=== PATIENT | male | born 1950 | race Caucasian/White ===

== ENCOUNTER 2018-07-09 07:05 | Outpatient (CLI) | payer MEDICARE, SELFPAY ==
[2018-07-09 07:51] LABS: Hemoglobin A1C 7.9 % (4.5-6.2)
== END 2018-07-09 07:25 ==
PROVIDERS: PCP Internal Medicine; Visit Provider Internal Medicine
DX: E11.9 Type 2 diabetes mellitus without complications (principal)
CPT/HCPCS: 36415; 83036

== ENCOUNTER 2019-01-28 07:10 | Outpatient (CLI) | payer MEDICARE, SELFPAY | END 2019-01-28 07:30 | PROVIDERS: PCP Internal Medicine; Visit Provider Internal Medicine | DX: E11.9 Type 2 diabetes mellitus without complications (principal) | CPT/HCPCS: 36415; 83036 ==

== ENCOUNTER 2019-10-03 08:26 | Outpatient (CLI) | payer MEDICARE, SELFPAY | END 2019-10-03 08:46 | PROVIDERS: PCP Internal Medicine; Visit Provider Internal Medicine | DX: E11.9 Type 2 diabetes mellitus without complications (principal) | CPT/HCPCS: 36415; 83036 ==

== ENCOUNTER 2020-02-15 01:22 | Outpatient (CLI) | payer MEDICARE, SELFPAY ==
[2020-02-15 08:21] LABS: Hemoglobin A1C 9.9 % (3.8-5.6)
[2020-02-15 08:41] LABS: CREATININE 1.22 mg/dL (0.70-1.30); Calculated LDL 135 mg/dL (<100); Cholesterol 230 mg/dL (<200); Estimated GFR 58.56 (mL/min/1.73m2); HDL Cholesterol 37 mg/dL (40-60); Triglyceride 294 mg/dL (<150)
== END 2020-02-15 01:42 ==
PROVIDERS: PCP Nurse Practitioner; Visit Provider Nurse Practitioner
DX: E11.9 Type 2 diabetes mellitus without complications (principal); I10 Essential (primary) hypertension; Z13.6 Encounter for screening for cardiovascular disorders
CPT/HCPCS: 36415; 80061; 82565; 83036; 84132

== ENCOUNTER 2020-05-16 02:40 | Outpatient (CLI) | payer MEDICARE, SELFPAY ==
[2020-05-16 08:00] LABS: Hemoglobin A1C 9.1 % (<5.7)
[2020-05-16 08:29] LABS: Calculated LDL 153 mg/dL (<100); Cholesterol 246 mg/dL (<200); HDL Cholesterol 40 mg/dL (40-60); Triglyceride 265 mg/dL (<150)
== END 2020-05-16 03:00 ==
PROVIDERS: PCP Nurse Practitioner; Visit Provider Nurse Practitioner
DX: E11.9 Type 2 diabetes mellitus without complications (principal)
CPT/HCPCS: 36415; 80061; 83036

== ENCOUNTER 2022-02-21 01:13 | Outpatient (CLI) | payer MEDICARE, SELFPAY ==
[2022-02-21 12:49] LABS: CREATININE 1.3 mg/dL (0.70-1.30); Calculated LDL 86 mg/dL (<100); Cholesterol 175 mg/dL (<200); Estimated GFR 54.11 (mL/min/1.73m2); HDL Cholesterol 42 mg/dL (40-60); Potassium 4.2 mmol/L (3.5-5.1); Triglyceride 238 mg/dL (<150)
[2022-02-21 12:58] LABS: Hemoglobin A1C 12.2 % (<5.7)
== END 2022-02-21 01:14 | disposition home or self-care (01) ==
LOC: LOS 01:14
PROVIDERS: PCP Nurse Practitioner; Visit Provider Nurse Practitioner
DX: E11.9 Type 2 diabetes mellitus without complications (principal); E78.5 Hyperlipidemia, unspecified; I10 Essential (primary) hypertension
CPT/HCPCS: 36415; 80061; 82565; 83036; 84132

== ENCOUNTER 2023-03-03 02:12 | Outpatient (CLI) | payer MEDICARE, SELFPAY ==
[2023-03-03 12:52] LABS: HCT 46.1 % (40.0-50.0); HGB 15.4 g/dL (13.5-17.5); MCH 28.4 pg (27.0-33.0); MCHC 33.4 % (32.0-36.0); MCV 85 fL (80-95); MPV 10.2 fL (8.0-11.0); Platelet Count 213 10^3/uL (130-400); RBC 5.42 10^6/uL (4.36-5.78); RDW-SD 36.7 fL
[2023-03-03 14:55] LABS: Anion Gap 7.4 mmol/L (3-11); BUN 19 mg/dL (7-18); CO2 30.6 mmol/L (21.0-32.0); CREATININE 1.3 mg/dL (0.70-1.30); Calcium 9.7 mg/dL (8.5-10.1); Calculated LDL 76 mg/dL (<100); Chloride 101 mmol/L (98-107); Cholesterol 177 mg/dL (<200); Estimated GFR 57.65 (mL/min/1.73m2); Glucose 267 mg/dL (74-106); HDL Cholesterol 42 mg/dL (40-60); Potassium 5.2 mmol/L (3.5-5.1); Sodium 139 mmol/L (136-145); Triglyceride 295 mg/dL (<150)
== END 2023-03-03 02:13 | disposition home or self-care (01) ==
PROVIDERS: PCP Nurse Practitioner Family; Referring Provider Nurse Practitioner Family; Visit Provider Nurse Practitioner Family
DX: E11.9 Type 2 diabetes mellitus without complications (principal); E78.5 Hyperlipidemia, unspecified; I10 Essential (primary) hypertension; Z00.00 Encounter for general adult medical examination without abnormal findings
CPT/HCPCS: 36415; 80048; 80061; 85027

== ENCOUNTER 2024-05-16 14:25 | Emergency (ER) | payer MEDICARE, SELFPAY ==
[2024-05-16] VITALS (23 sets, daily range): BP systolic 105–145; BP diastolic 34–94; PULSE 76–95; RESP 9–21; TEMP 36.4; O2SAT 96–100
--- NOTE | 2024-05-16 14:40 | W.ED.GENAD ---
Discharge Plan Disposition Patient Disposition: Home Condition: Improving Discharge Details Chief Complaint: Abd Prob Clinical Impression: Bladder outflow obstruction, MICHELLE (acute kidney injury) Primary Care Provider: Venus Yanez ED Provider: Collin Jenkins Home Meds and New Rx's Prescriptions: No Action (DME) blood-glucose meter Misc See Rx Instructions .MEDSUPPLY Qty: 1 0RF Rx Instructions: As directed to check daily blood glucose. No insulin. Dispense covered brand. Dx: E11.9 to maintain HbA1c less than 7%. (DME) Blood Glucose Test Strip See Rx Instructions .MEDSUPPLY Qty: 100 3RF Rx Instructions: As directed to check daily blood glucose. No insulin. Dispense covered brand. Dx: E11.9 to maintain HbA1c less than 7%. (DME) lancets Misc See Rx Instructions .MEDSUPPLY Qty: 100 3RF Rx Instructions: As directed to check daily blood glucose. No insulin. Dispense covered brand. Dx: E11.9 to maintain HbA1c less than 7%. atorvastatin 20 mg tablet 20 mg PO QPM Qty: 90 3RF lisinopril 10 mg tablet 10 mg PO DAILY Qty: 90 3RF lisinopril-hydrochlorothiazide [Zestoretic] 20-12.5 mg tablet 1 tab PO QAM Qty: 90 3RF glipizide 5 mg tablet 5 mg PO BID Patient Comments: take 1 tablet by mouth twice a day Discharge Instructions Instructions: Acute kidney injury, Urinary Retention Additional Instructions: Please follow-up closely with urology and your primary care physician. Please return to the Emergency Department for any worsening symptoms HPI General Date/Time Provider Initiated Documentation: 05/16/24 14:26. HPI Narrative: 73-year-old male history of diabetes presents with 4 days of constipation and urinary retention. Associate with nausea no vomiting. Denies history of abdominal surgery. Related Data Home Medications ?Medication ?Instructions ?Recorded ?Confirmed blood sugar diagnostic (Blood #100 ea 03/27/23 02/23/24 Glucose Test strips) blood-glucose meter #1 ea 03/27/23 02/23/24 lancets #100 ea 03/27/23 02/23/24 atorvastatin 20 mg tablet 20 mg PO QPM #90 tabs 05/14/23 05/16/24 lisinopril 10 mg tablet 10 mg PO DAILY #90 tabs 10/09/23 05/16/24 lisinopril 20 1 tab PO QAM #90 tabs 10/19/23 02/23/24 mg-hydrochlorothiazide 12.5 mg tablet (Zestoretic) glipizide 5 mg tablet 5 mg PO BID 05/16/24 05/16/24 Previous Rx's ?Medication ?Instructions ?Recorded blood sugar diagnostic (Blood #100 ea 03/27/23 Glucose Test strips) blood-glucose meter #1 ea 03/27/23 lancets #100 ea 03/27/23 atorvastatin 20 mg tablet 20 mg PO QPM #90 tabs 05/14/23 lisinopril 10 mg tablet 10 mg PO DAILY #90 tabs 10/09/23 lisinopril 20 1 tab PO QAM #90 tabs 10/19/23 mg-hydrochlorothiazide 12.5 mg tablet (Zestoretic) Allergies Allergy/AdvReac Type Severity Reaction Status Date / Time metformin AdvReac Intermediate diarrhea Verified 05/16/24 15:25 General Stated Complaint: Abd Prob JULIANNE: 3 Exam Narrative Exam Narrative: Alert oriented resting comfortably Moist mucous membranes tongue secretions Full sentences no respiratory distress no tachypnea Abdomen soft nontender nondistended consider some suprapubic fullness nonperitoneal Moving all extremities without deficit No peripheral edema Ambulatory without ataxia Course Vital Signs Vital signs: Vital Signs Temperature 36.4 C 05/16/24 14:31 Pulse 95 H 05/16/24 14:31 Blood Pressure 133/82 05/16/24 14:31 Pulse Oximetry 96 05/16/24 14:31 Temperature 36.4 C 05/16/24 14:31 Temperature Source Oral 05/16/24 14:31 Pulse 95 H 05/16/24 14:31 Blood Pressure 133/82 05/16/24 14:31 Pulse Oximetry 96 05/16/24 14:31 Medical Decision Making 73-year-old male history of diabetes presents with 4 days of urinary retention and constipation, hemodynamically stable afebrile nontoxic neurologically intact no respiratory distress, abdomen soft nontender nondistended nonperitoneal however some slight fullness in suprapubic region, consider urinary retention related to BPH versus bowel obstruction versus ileus versus constipation versus malignancy muscles consider viral illness electrolyte derangement Bladder scan showing urinary retention [address] Deleon catheter will obtain labs and imaging 16: 29 severe MICHELLE likely related to urinary outflow obstruction, anion gap likely related to uremia. No evidence of air export coordinator small breathing tachycardia nausea vomiting or ketonuria to suggest DKA. Will recheck basic metabolic panel and venous blood gas after fluid resuscitation. If improving kidney function and labs will be able to discharge home with catheter to leg bag. 17: 40 labs improving after urinary outflow obstruction has been resolved. Patient will be given leg bag for Deleon, will be given urology follow-up. Quality:[facility] Health Related Social Needs: No Data to Display [facility] All Active Problems (Updated 05/16/24 @ 17:41 by Collin Jenkins MD) MICHELLE (acute kidney injury) (Acute) Bladder outflow obstruction (Acute) Right hip pain (Acute) Hyperlipidemia (Acute) Diabetes mellitus (Chronic) He wants to stick with the glipizide for now. Will be glad to change him when he is ready. The diarrhea is the issue. He did not want any treatment for his perianal irritation as it is minimal right now. His another A1c in a few months. Also send him to [facility] for an evaluation. He has an A1c scheduled for month and a half from now and hopefully he will remember to go. 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 LARA Essential hypertension (Acute 08/24/13) Tubular adenoma (Acute 11/23/15) Medical History (Updated 05/16/24 @ 17:41 by Collin Jenkins MD) Family history of diabetes mellitus (02/18/16) Mother/Sister Abnormal glucose Congenital hearing loss Essential hypertension Family History (Updated 02/22/21 @ 14:20 by Dawna Carter) Mother , 62 Diabetes Sister No problems noted. Social History (Updated 03/03/23 @ 15:38 by Brunilda Barnard) Smoking/Tobacco Use Status: Never Second Hand Exposure: No Smoking risk assessment performed?: Yes Alcohol Intake: current Alcohol Intake frequency: a few times a month Alcohol type: beer, wine and hard liquor Drug use: Never Substance use type: does not use Counseling given: No Counseling provided: none Caregiver/Support person: No Household members: none Housing: house Communication Needs: Hard of Hearing Do you need help understanding health information?: Rarely Pets and animals: No Sexually active: No Do you think of yourself as: straight/heterosexual Current gender identity: male What is your relationship status?: never How often do you talk on the phone with friends or family?: once per week How often do you get together with friends or relatives?: twice per week How often do you attend voodoo or nondenominational services?: decline to answer Do you belong to any clubs or organized social groups?: yes Panel score (0-1 are the most socially isolated patients): 2 What type of physical activity do you participate in: walking Duration: 30-45 minutes/day Frequency: 1-2 times per week Yahaira/Mormon: None Seatbelt use: always Helmet use: No Drive intox or ride w/intox experienced truck driver: No Do you feel safe at home: Yes Do you feel safe in your relationship?: Yes
[2024-05-16] MEDS: Normal Saline 500 ML 1000 ML IV (14:58)
[2024-05-16] MEDS: Ondansetron 4 MG/2 ML VIAL IVP (14:59)
[2024-05-16 15:07] LABS: Abs Immature Grans 0.08 10^3/uL (0.0-0.06); Absolute Basophil Count 0.01 10^3/uL (0.0-0.2); Absolute Eosinophil Count 0.02 10^3/uL (0.0-0.7); Absolute Lymphocyte Count 0.85 10^3/uL (1.2-3.4); Absolute Monocyte Count 1.27 10^3/uL (0.1-0.8); Absolute Neutrophil Count 9.41 10^3/uL (1.2-6.7); Basophils % 0.1 %; Eosinophils % 0.2 %; HCT 41.9 % (40.0-50.0); HGB 14.5 g/dL (13.5-17.5); Immature Grans % 0.7 %; Lymphocytes % 7.3 %; MCH 29.5 pg (27.0-33.0); MCHC 34.6 % (32.0-36.0); MCV 85 fL (80-95); MPV 9.8 fL (8.0-11.0); Monocytes % 10.9 %; Neutrophils % 80.8 %; Platelet Count 212 10^3/uL (130-400); RBC 4.91 10^6/uL (4.36-5.78); RDW 11.9 % (11.8-14.1); RDW-SD 36.6 fL; WBC 11.64 10^3/uL (4.4-10.8)
[2024-05-16] MEDS: Lidocaine 2% Jelly 6 ML SYR (15:16)
[2024-05-16 15:21] LABS: ALT 20 U/L (16-63); AST 17 U/L (15-37); Albumin 3.8 g/dL (3.4-5.0); Alkaline Phosphatase 80 U/L (46-116); Anion Gap 13.7 mmol/L (3-11); BUN 67 mg/dL (7-18); Bilirubin, Total 1.02 mg/dL (0.2-1.0); CO2 23.3 mmol/L (21.0-32.0); Calcium 9.2 mg/dL (8.5-10.1); Chloride 92 mmol/L (98-107); Glucose 238 mg/dL (74-106); Lipase 34 U/L (16-77); Potassium 4.9 mmol/L (3.5-5.1); Sodium 129 mmol/L (136-145); Total Protein 7.4 g/dL (6.4-8.2)
[2024-05-16 15:26] LABS: Bilirubin Negative (Negative); Blood Trace-intact (Negative); Clarity Clear (Clear); Glucose 250 mg/dL (Negative); Ketones Negative (Negative); Leukocyte Esterase Negative (Negative); Nitrite Negative (Negative); Urobilinogen 0.2 mg/dL (Up to 0.2); pH 5.5 (5-8)
[2024-05-16 15:34] LABS: Epithelial Cells Rare HPF (Negative); WBC Negative HPF (0-5)
[2024-05-16 15:35] LABS: Bacteria Rare HPF (Negative); C & S Indicated? No; Crystals Negative HPF (Negative); Mucus Negative (Negative)
--- NOTE | 2024-05-16 16:07 | DI.CT_ITS ---
Exam(s) CT ABDOMEN PELVIS WO EXAM: CT ABDOMEN PELVIS WO CLINICAL HISTORY: urinary retention constipation. TECHNIQUE: Imaging Protocol: Axial computed tomography images with coronal and sagittal reformatted images were created and reviewed. COMPARISON: No exams were available for comparison FINDINGS: ABDOMEN: Lung Bases: There is mild diffuse wall thickening of the distal esophagus. This may be due to underd istention but esophagitis cannot be excluded. Please correlate clinically. Liver: Normal density. No measurable mass. Gallbladder and biliary tract: Gallstones are present. There is no biliary ductal dilatation. Pancreas: Normal density, no abnormal calcifications or inflammatory process. Spleen: Normal. Kidneys: Normal size, contour and axis.No evidence of nephrolithiasis. There is mild dilatation of t he ureters bilaterally which may be secondary to chronic bladder outlet obstruction and an enlarged p rostate gland. No masses seen. Adrenal glands: No mass is seen. Lymph nodes: Within normal limits. Abdominal Aorta: Abdominal portion non-dilated. Atherosclerotic calcification is present. PELVIS: Bladder:There is a catheter in place. There is a small amount of air seen in the urinary bladder lik isidoro reflecting instrumentation. There is mild wall thickening of the urinary bladder. This may be d ue to underdistention, chronic bladder outlet obstruction or cystitis. Please correlate clinically. High density material is seen in the dependent portion of the urinary bladder which may represent mu ltiple bladder stones. Bowel: There is diverticulosis of the colon without evidence of acute diverticulitis. There is no ev idence of bowel wall thickening or obstruction. No evidence of appendicitis. There is a small amoun t of stool throughout the colon. Peritoneal cavity: No ascites, collection or mesenteric inflammatory response. No free air. Reproductive organs: The prostate gland is markedly enlarged. Bones: Age-appropriate degenerative changes are seen in the spine. Soft Tissues: Small bilateral fat containing inguinal hernias are present. IMPRESSION: 1. No evidence of nephrolithiasis. 2. Markedly enlarged prostate gland. 3. High density material seen layering in the urinary bladder which may represent multiple bladder st ones. There is a Deleon catheter in the urinary bladder. There is a small amount of air seen in the urinary bladder likely reflecting instrumentation. 4. There is mild thickening of the wall of the urinary bladder. This may be due to chronic bladder o utlet obstruction, underdistention or cystitis. Please correlate clinically. 5. Colonic diverticulosis without evidence of acute diverticulitis. 6. Cholelithiasis. No biliary ductal dilatation. 7. Mild diffuse thickening of the wall of the distal esophagus. This may be due to underdistention o r esophagitis. Please correlate clinically. RADIATION DOSE DELIVERED: 416.08mGy.cm Total DLP DATA REPOSITORY: All CT scans at this facility are submitted to the National Radiology Data Registry (NRDR) Dose Index Registry (DIR) with the [employer] (ACR). RADIATION OPTIMIZATION: All CT scans at this facility use at least one of these dose optimization te chniques: automated exposure control; mA and/or kV adjustment per patient size (includes targeted exa ms where dose is matched to clinical indication); or iterative reconstruction.
[2024-05-16 16:10] LABS: COVID-19 PCR Negative (Negative); Influenza A PCR Negative (Negative); Influenza B PCR Negative (Negative); RSV PCR Negative (Negative)
[2024-05-16 16:11] LABS: Source Nasopharynx
[2024-05-16 16:13] LABS: BE (Venous) -5 mmol/L (-2-3); HCO3 (Venous) 21 mmol/L (23-28); O2 Sat (Venous) 45 %; TCO2 (Venous) 20 mmol/L (24-29); pCO2 (Venous) 43 mmHg (41-51); pO2 (Venous) 27 mmHg
[2024-05-16] MEDS: Lactated Ringers 1,000 ML 1000 ML IV (16:38)
[2024-05-16 17:20] LABS: BE (Venous) -3 mmol/L (-2-3); HCO3 (Venous) 23 mmol/L (23-28); O2 Sat (Venous) 42 %; TCO2 (Venous) 21 mmol/L (24-29); pCO2 (Venous) 40 mmHg (41-51); pH (Venous) 7.36 (7.31-7.41); pO2 (Venous) 25 mmHg
[2024-05-16 17:35] LABS: Anion Gap 9.4 mmol/L (3-11); BUN 61 mg/dL (7-18); CO2 23.6 mmol/L (21.0-32.0); Calcium 8.6 mg/dL (8.5-10.1); Chloride 100 mmol/L (98-107); Estimated GFR 10.37 (mL/min/1.73m2); Glucose 203 mg/dL (74-106); Sodium 133 mmol/L (136-145)
[2024-05-16 17:36] LABS: CREATININE 5.4 mg/dL (0.70-1.30)
== END 2024-05-16 18:38 | disposition home or self-care (01) ==
PROVIDERS: Emergency Provider Emergency Medicine; PCP Nurse Practitioner Family
DX: N32.0 Bladder-neck obstruction (principal); R33.8 Other retention of urine; N17.9 Acute kidney failure, unspecified; E11.9 Type 2 diabetes mellitus without complications
CPT/HCPCS: 51702; 51798; 80048; 80053; 82805; 83690; 87637; 96361; 96374; 74176; 81003; 81015; 85025; 99283; J2405

== ENCOUNTER 2024-05-18 10:27 | Emergency (ER) | payer MEDICARE, SELFPAY ==
[2024-05-18 10:31] VITALS: BP 166/74; PULSE 76; RESP 12; TEMP 36.4; O2SAT 95
--- NOTE | 2024-05-18 10:45 | ED.GENADUL_ITS ---
Discharge Plan Disposition Patient Disposition: Home Condition: Stable Discharge Details Clinical Impression: Bladder outflow obstruction Primary Care Provider: Venus Yanez ED Provider: Miguel Hutton Home Meds and New Rx's Prescriptions: Continued (DME) blood-glucose meter Misc See Rx Instructions .MEDSUPPLY Qty: 1 0RF Rx Instructions: As directed to check daily blood glucose. No insulin. Dispense covered brand. Dx: E11.9 to maintain HbA1c less than 7%. (DME) Blood Glucose Test Strip See Rx Instructions .MEDSUPPLY Qty: 100 3RF Rx Instructions: As directed to check daily blood glucose. No insulin. Dispense covered brand. Dx: E11.9 to maintain HbA1c less than 7%. (DME) lancets Misc See Rx Instructions .MEDSUPPLY Qty: 100 3RF Rx Instructions: As directed to check daily blood glucose. No insulin. Dispense covered brand. Dx: E11.9 to maintain HbA1c less than 7%. atorvastatin 20 mg tablet 20 mg PO QPM Qty: 90 3RF lisinopril 10 mg tablet 10 mg PO DAILY Qty: 90 3RF glipizide 5 mg tablet 5 mg PO BID Patient Comments: take 1 tablet by mouth twice a day No Action lisinopril-hydrochlorothiazide [Zestoretic] 20-12.5 mg tablet 1 tab PO QAM Qty: 90 3RF Discharge Instructions Additional Instructions: Your kidney function significantly improved on lab work today Follow-up with urology, you can call their office to arrange for follow-up If you feel more ill, have severe pain or new symptoms such as high fevers return to the emergency department for reevaluation Referrals: Rahul Sewell MD [ [facility] STAFF PHYSICIAN] - [facility] General Mode of arrival: ambulatory . Date/Time Provider Initiated Documentation: 05/18/24 10:34 . Limitations to Documentation: no limitations . Information obtained by: patient . History of Present Illness 73 year old M p resents to the emergency department with the chief complaint of blood around penis, described as mild, Quality is described as aching, and is localized to the genitals. Patient reports no radiation. Patient started experiencing this day(s) (2) and it has been intermittent. No relieving factors improve symptom(s), No exacerbating factors reported . Patient notes no other symptoms.; denies chest pain, fever/chills and shortness of breath. Patient did receive the following treatments prior to arrival, none Related Data Home Medications ?Medication ?Instructions ?Recorded ?Confirmed blood sugar diagnostic (Blood #100 ea 03/27/23 05/18/24 Glucose Test strips) blood-glucose meter #1 ea 03/27/23 05/18/24 lancets #100 ea 03/27/23 05/18/24 atorvastatin 20 mg tablet 20 mg PO QPM #90 tabs 05/14/23 05/18/24 lisinopril 10 mg tablet 10 mg PO DAILY #90 tabs 10/09/23 05/18/24 lisinopril 20 1 tab PO QAM #90 tabs 10/19/23 05/16/24 mg-hydrochlorothiazide 12.5 mg tablet (Zestoretic) glipizide 5 mg tablet 5 mg PO BID 05/16/24 05/18/24 Previous Rx's ?Medication ?Instructions ?Recorded blood sugar diagnostic (Blood #100 ea 03/27/23 Glucose Test strips) blood-glucose meter #1 ea 03/27/23 lancets #100 ea 03/27/23 atorvastatin 20 mg tablet 20 mg PO QPM #90 tabs 05/14/23 lisinopril 10 mg tablet 10 mg PO DAILY #90 tabs 10/09/23 lisinopril 20 1 tab PO QAM #90 tabs 10/19/23 mg-hydrochlorothiazide 12.5 mg tablet (Zestoretic) Allergies Allergy/AdvReac Type Severity Reaction Status Date / Time metformin AdvReac Intermediate diarrhea Verified 05/18/24 10:36 General Stated Complaint: Urinary JULIANNE: 3 Review of Systems All systems reviewed & are unremarkable except as noted in HPI and below Constitutional Constitutional: Denies chills, Denies fever(s) and Denies weakness Cardiovascular Cardiovascular: Denies chest pain and Denies dyspnea Respiratory Respiratory: Denies cough and Denies dyspnea Gastrointestinal Gastrointestinal: Denies abdominal pain, Denies nausea and Denies vomiting Neurologic Neurologic: Denies weakness Exam Const General: no acute distress Orientation: alert [facility] Head: normal to inspection Ears: external ears normal General nose exam: external nose normal Mouth: moist mucous membranes Eyes General: appearance normal, both eyes and all related structures Neck Neck: normal visual inspection Resp Effort & Inspection: normal respiratory effort and able to speak in complete sentences Cardio Rate: regular rate GI Palpation: soft and nontender Penis: not erythematous and no masses Skin General skin exam: no rashes or lesions noted Neuro General: patient alert and patient oriented x3 Extrem General: normal to inspection Psych Mental Status: mental status grossly normal Course Vital Signs Vital signs: Vital Signs Temperature 36.4 C 05/18/24 10:31 Pulse 76 05/18/24 10:31 Respiratory Rate 12 05/18/24 10:31 Blood Pressure 166/74 H 05/18/24 10:31 Pulse Oximetry 95 05/18/24 10:31 Temperature 36.4 C 05/18/24 10:31 Pulse 76 05/18/24 10:31 Respiratory Rate 12 05/18/24 10:31 Respiratory Effort Normal 05/18/24 10:37 Blood Pressure 166/74 H 05/18/24 10:31 Pulse Oximetry 95 05/18/24 10:31 Oxygen Delivery Method Room Air 05/18/24 10:31 Oxygen Flow Rate 0 05/18/24 10:31 Pain Level 8 05/18/24 10:31 Comment Pt had advil around 1015 to help with the pain around the head of his penis 05/18/24 10:31 Medical Decision Making 73-year-old male who was seen 2 days ago for urinary retention and MICHELLE secondary to this and had a Frazier placed comes in stating that he is having intermittent bleeding from the tip of his penis. He denies any severe pain. He has no abdominal pain otherwise feels well. He has clear appearing urine in his Frazier. He does have some dried blood at the tip of his penis. There is no tenderness or pain. I suspect he is having some bleeding from the Frazier insertion, it is not oozing or coming out currently does not feel it is a injury that requires any further intervention at this time. Discussed with him that the Frazier should remain in place and he may continue to have some intermittent bleeding but as long as it stops is not of concern. I will check a BMP given his MICHELLE on his prior visit. Creatinine values significantly improved since last visit and he feels significantly better after lidocaine place. No bleeding currently. He is stable for discharge and will follow-up with urology, return precautions given Differential Diagnosis Differential Diagnosis: traumatic insertion frazier, michelle Quality:SDOH Health Related Social Needs: No Data to Display PFSH All Active Problems (Updated 05/18/24 @ 11:45 by Miguel Hutton MD) MICHELLE (acute kidney injury) (Acute) Bladder outflow obstruction (Acute) Right hip pain (Acute) Hyperlipidemia (Acute) Diabetes mellitus (Chronic) He wants to stick with the glipizide for now. Will be glad to change him when he is ready. The diarrhea is the issue. He did not want any treatment for his perianal irritation as it is minimal right now. His another A1c in a few months. Also send him to [facility] for an evaluation. He has an A1c scheduled for month and a half from now and hopefully he will remember to go. 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 LARA Essential hypertension (Acute 08/24/13) Tubular adenoma (Acute 11/23/15) Medical History Family history of diabetes mellitus (02/18/16) Mother/Sister Abnormal glucose Congenital hearing loss Essential hypertension Family History Mother , 62 Diabetes Sister No problems noted. Social History Smoking/Tobacco Use Status: Never Second Hand Exposure: No Smoking risk assessment performed?: Yes Alcohol Intake: current Alcohol Intake frequency: holidays/special occasions only Alcohol type: beer, wine and hard liquor Drug use: Never Substance use type: does not use Counseling given: No Counseling provided: none Caregiver/Support person: No Household members: none Housing: house Communication Needs: Hard of Hearing Do you need help understanding health information?: Rarely Pets and animals: No Sexually active: No Do you think of yourself as: straight/heterosexual Current gender identity: male What is your relationship status?: never How often do you talk on the phone with friends or family?: once per week How often do you get together with friends or relatives?: twice per week How often do you attend restorationism or religion services?: decline to answer Do you belong to any clubs or organized social groups?: yes Panel score (0-1 are the most socially isolated patients): 2 What type of physical activity do you participate in: walking Duration: 30-45 minutes/day Frequency: 1-2 times per week Yahaira/Baptism: None Seatbelt use: always Helmet use: No Drive intox or ride w/intox escort car driver: No Do you feel safe at home: Yes Do you feel safe in your relationship?: Yes
[2024-05-18] MEDS: Lidocaine 2% Jelly 6 ML SYR (11:24)
[2024-05-18 11:25] VITALS: BP 146/57; PULSE 67; RESP 16; O2SAT 97
[2024-05-18 11:30] LABS: BUN 29 mg/dL (7-18); CO2 27.4 mmol/L (21.0-32.0); CREATININE 1.5 mg/dL (0.70-1.30); Calcium 9.1 mg/dL (8.5-10.1); Chloride 107 mmol/L (98-107); Estimated GFR 48.25 (mL/min/1.73m2); Glucose 220 mg/dL (74-106)
[2024-05-18 11:37] LABS: Anion Gap 7.6 mmol/L (3-11); Sodium 142 mmol/L (136-145)
[2024-05-18 11:38] LABS: Potassium 3.9 mmol/L (3.5-5.1)
== END 2024-05-18 12:21 | disposition home or self-care (01) ==
PROVIDERS: Emergency Provider Emergency Medicine; PCP Nurse Practitioner Family
DX: N32.0 Bladder-neck obstruction (principal); T83.9XXA Unspecified complication of genitourinary prosthetic device, implant and graft, initial encounter
CPT/HCPCS: 80048; 99282; 99283

== ENCOUNTER 2024-05-19 09:46 | Emergency (ER) | payer MEDICARE, SELFPAY ==
[2024-05-19 09:56] VITALS: BP 154/81; PULSE 73; RESP 10; TEMP 36.4; O2SAT 96
--- NOTE | 2024-05-19 10:40 | ED.GENADUL_ITS ---
Discharge Plan Disposition Patient Disposition: Home Condition: Stable Discharge Details Clinical Impression: Frazier catheter problem Primary Care Provider: Venus Yanez ED Provider: Awais Mckay Home Meds and New Rx's Prescriptions: Continued (DME) blood-glucose meter Misc See Rx Instructions .MEDSUPPLY Qty: 1 0RF Rx Instructions: As directed to check daily blood glucose. No insulin. Dispense covered brand. Dx: E11.9 to maintain HbA1c less than 7%. (DME) Blood Glucose Test Strip See Rx Instructions .MEDSUPPLY Qty: 100 3RF Rx Instructions: As directed to check daily blood glucose. No insulin. Dispense covered brand. Dx: E11.9 to maintain HbA1c less than 7%. (DME) lancets Misc See Rx Instructions .MEDSUPPLY Qty: 100 3RF Rx Instructions: As directed to check daily blood glucose. No insulin. Dispense covered brand. Dx: E11.9 to maintain HbA1c less than 7%. atorvastatin 20 mg tablet 20 mg PO QPM Qty: 90 3RF lisinopril 10 mg tablet 10 mg PO DAILY Qty: 90 3RF lidocaine HCl 2 % jelly in applicator 1 applic topical BID-QID PRN (Reason: pain) Qty: 250 2RF Rx Instructions: apply to urethral meatus as needed glipizide 5 mg tablet 5 mg PO BID Patient Comments: take 1 tablet by mouth twice a day No Action lisinopril-hydrochlorothiazide [Zestoretic] 20-12.5 mg tablet 1 tab PO QAM Qty: 90 3RF Discharge Instructions Instructions: How to Care for Your Frazier Catheter Additional Instructions: You were seen in the emergency department for your continued minor bleeding from your Frazier catheter site, is very unlikely that this bleeding is dangerous and you are seen by urology here in the emergency department, they will follow-up with you and have sent 2 prescriptions. If sent you home with a lidocaine jelly to use for the pain around the Frazier catheter site, please follow-up with urology outpatient, please return to the emergency department for severe increase in bleeding or pain especially with fever, any abdominal pain with blocked Frazier catheter Referrals: [facility] [Provider Group] Venus Yanez NP [Primary Care Provider] - Discharge Data Discharge Date/Time-TO BE ENTERED AT DEPARTURE: 05/19/24 12:47 HPI General Date/Time Provider Initiated Documentation: 05/19/24 09:49 . HPI Narrative: 73 year-old male presents to ED today by POV/ambulating, 4th visit this week with a chief complaint of blood draining around a frazier catheter intermittently, being followed by Urology for this problem with onset since Thursday. Quality described as not overly painful, does have some clood and clots drain from around the frazier tubing daily, no active bleeding, frazier bag appears with normal urine, no radiation to fever, flank pain, abdominal pain, chest pain, shortness of breath, nausea/vomiting. Severity is described as moderate. Palliating factors include nothing specific. Provoking factors include nothing specific. Events leading up to the incident/Associated Symptoms: Patient will be consulted on by Urology here in ED as they have not been able to fit him into schedule yet. Patient not anticoagulated. Related Data Home Medications ?Medication ?Instructions ?Recorded ?Confirmed blood sugar diagnostic (Blood #100 ea 03/27/23 05/19/24 Glucose Test strips) blood-glucose meter #1 ea 03/27/23 05/19/24 lancets #100 ea 03/27/23 05/19/24 atorvastatin 20 mg tablet 20 mg PO QPM #90 tabs 05/14/23 05/19/24 lisinopril 10 mg tablet 10 mg PO DAILY #90 tabs 10/09/23 05/19/24 lisinopril 20 1 tab PO QAM #90 tabs 10/19/23 05/19/24 mg-hydrochlorothiazide 12.5 mg tablet (Zestoretic) glipizide 5 mg tablet 5 mg PO BID 05/16/24 05/19/24 lidocaine HCl 2 % mucosal jelly in 1 applic topical BID-QID PRN pain 05/19/24 applicator #250 mL Previous Rx's ?Medication ?Instructions ?Recorded blood sugar diagnostic (Blood #100 ea 03/27/23 Glucose Test strips) blood-glucose meter #1 ea 03/27/23 lancets #100 ea 03/27/23 atorvastatin 20 mg tablet 20 mg PO QPM #90 tabs 05/14/23 lisinopril 10 mg tablet 10 mg PO DAILY #90 tabs 10/09/23 lisinopril 20 1 tab PO QAM #90 tabs 10/19/23 mg-hydrochlorothiazide 12.5 mg tablet (Zestoretic) lidocaine HCl 2 % mucosal jelly in 1 applic topical BID-QID PRN pain 05/19/24 applicator #250 mL Allergies Allergy/AdvReac Type Severity Reaction Status Date / Time metformin AdvReac Intermediate diarrhea Verified 05/19/24 09:59 General Stated Complaint: Urinary JULIANNE: 3 Review of Systems All systems reviewed & are unremarkable except as noted in HPI and below Exam Narrative Exam Narrative: GENERAL APPEARANCE: Well-nourished, non-toxic, awake and alert, atraumatic, no acute distress. SKIN: Warm, pink, dry, intact, without rashes/lesions/ulcerations. HEAD: Normocephalic, atraumatic, normal hair distribution for gender/age. EYES: Normal conjunctiva, no exudates on lids/lashes. ENT: Nares patent, no circumoral cyanosis, no facial swelling NECK: Supple, trachea midline, painless cervical ROM. LUNGS/CHEST: Non-labored respirations, normal A/P diameter, symmetrical expansion, no chest wall deformity HEART (CV/PV): No peripheral edema, no JVD. ABDOMEN: Soft, non-distended, no guarding, no abdominal tenderness, no CVA tenderness to percussion bilaterally, mild bleeding from urethral meatus into depends- no active bleeding. MSK: Normal ROM, no swelling/deformity to bilateral UEs or LEs, moving all extremities without weakness, no cyanosis, spine midline without tenderness, normal curvature. NEURO: Mental Status AAOx4 - alert to person, place, time, events No facial droop, no forehead involvement. Motor: No focal weakness - strength 5/5 in bilateral UEs and LEs, proximal and distal, symmetric. Sensory: sensation intact to light touch globally. Gait normal: patient ambulated without ataxia into ED room. PSYCH: euthymic, cooperative, pleasant, appropriate speech Course Vital Signs Vital signs: Vital Signs Temperature 36.4 C L 05/19/24 09:56 Pulse 73 05/19/24 09:56 Respiratory Rate 10 L 05/19/24 09:56 Blood Pressure 154/81 H 05/19/24 09:56 Pulse Oximetry 96 05/19/24 09:56 Temperature 36.4 C L 05/19/24 09:56 Temperature Source Oral 05/19/24 09:56 Pulse 73 05/19/24 09:56 Respiratory Rate 10 L 05/19/24 09:56 Respiratory Effort Normal 05/19/24 10:00 Blood Pressure 154/81 H 05/19/24 09:56 Pulse Oximetry 96 05/19/24 09:56 Pain Level 8 05/19/24 09:56 Medical Decision Making This dictation utilizes [id number] dictation software and may contain unedited grammatical errors. 73 year-old male presents to ED today by POV/ambulating, 4th visit this week with a chief complaint of blood draining around a frazier catheter intermittently, being followed by Urology for this problem with onset since Thursday. Quality described as not overly painful, does have some clood and clots drain from around the frazier tubing daily, no active bleeding, frazier bag appears with normal urine, no radiation to fever, flank pain, abdominal pain, chest pain, shortness of breath, nausea/vomiting. Severity is described as moderate. Palliating factors include nothing specific. Provoking factors include nothing specific. Events leading up to the incident/Associated Symptoms: Patient will be consulted on by Urology here in ED as they have not been able to fit him into schedule yet. Patients' medical history: t2DM, HTN, Bladder outflow obstruction, MICHELLE, SALAMATOF. Family and social history: noncontributory. Pertinent exam findings / vital signs include dried blood in depends, no active bleeding from urethral meatus, urine in frazier bag- draining, nonperitoneal abdomen, vitals nontoxic. Differential / pathologies of concern include continued bladder outflow obstruction, UTI, frazier catheter problem. Diagnostic studies of: -Reviewed labs from yesterdays visit- showed vastly improved SCr Interventions of: -Consult Urology- patient seen in ED by Dr. Sewell please see his note. ED Course/Assessment/Plan: Patient presents to the ED for the fourth time this week for Frazier catheter problem, he has known bladder outflow obstruction and had severe renal failure on the which is resolving per yesterday's visit, he is concerned that he has blood leaking around the tubing from his urethra, likely from physical trauma of placing the Frazier. He was seen by Dr. Sewell and will be definitively managed from urology outpatient clinic, and strict return criteria for any worsening bleeding, signs of infection, severe flank pain, weakness, nausea, fevers. Findings not consistent with hemorrhage, sepsis, renal failure. Disposition of Frazier Catheter Problem. Patient verbalized understanding of the plan and return to ED criteria and engaged in shared decision making. Medical Records Medical records reviewed: Yes I reviewed the patient's medical records. Quality:[facility] Health Related Social Needs: No Data to Display [facility] All Active Problems (Updated 05/19/24 @ 12:35 by LILI Garcia) Frazier catheter problem (Acute) MICHELLE (acute kidney injury) (Acute) Bladder outflow obstruction (Acute) Right hip pain (Acute) Hyperlipidemia (Acute) Diabetes mellitus (Chronic) He wants to stick with the glipizide for now. Will be glad to change him when he is ready. The diarrhea is the issue. He did not want any treatment for his perianal irritation as it is minimal right now. His another A1c in a few months. Also send him to [facility] for an evaluation. He has an A1c scheduled for month and a half from now and hopefully he will remember to go. 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 LARA Essential hypertension (Acute 08/24/13) Tubular adenoma (Acute 11/23/15) Medical History Family history of diabetes mellitus (02/18/16) Mother/Sister Abnormal glucose Congenital hearing loss Essential hypertension Family History Mother , 62 Diabetes Sister No problems noted. Social History Smoking/Tobacco Use Status: Never Second Hand Exposure: No Smoking risk assessment performed?: Yes Alcohol Intake: current Alcohol Intake frequency: holidays/special occasions only Alcohol type: beer, wine and hard liquor Drug use: Never Substance use type: does not use Counseling given: No Counseling provided: none Caregiver/Support person: No Household members: none Housing: house Communication Needs: Hard of Hearing Do you need help understanding health information?: Rarely Pets and animals: No Sexually active: No Do you think of yourself as: straight/heterosexual Current gender identity: male What is your relationship status?: never How often do you talk on the phone with friends or family?: once per week How often do you get together with friends or relatives?: twice per week How often do you attend alevism or jehovah's witness services?: decline to answer Do you belong to any clubs or organized social groups?: yes Panel score (0-1 are the most socially isolated patients): 2 What type of physical activity do you participate in: walking Duration: 30-45 minutes/day Frequency: 1-2 times per week Yahaira/Lutheran: None Seatbelt use: always Helmet use: No 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
[2024-05-19 11:22] VITALS: BP 154/81; PULSE 73; RESP 10; TEMP 36.4; O2SAT 96
[2024-05-19 11:53] VITALS: BP 151/69; PULSE 66; RESP 18; TEMP 35.9; O2SAT 100
[2024-05-19] MEDS: Lidocaine 2% Jelly 11 ML SYR UR (12:40)
--- NOTE | 2024-05-19 14:36 | W.UROLOGYCON ---
Date of service: 05/19/24 Time of Service: 14:36 Assessment and Plan Assessment and plan (1) Bladder outflow obstruction: Status: Acute Assessment and plan: His urine is actually clear and his catheter continues to flow. I reassured the patient there is nothing emergent that needs to be done. He does need the Deleon catheter as he had obstructive uropathy when he initially presented. When we are able to see him in the office in a nonemergent state, we can discuss our treatment options at that time. The blood around the urethral meatus is not uncommon. We are more worried if there is blood in the catheter itself and the patient's form clots causing catheter obstruction. There is no indication at this point that this gentleman has catheter occlusion. He simply needs to be treated symptomatically. Have recommended that we give him some topical lidocaine jelly while he is here in the emergency department and I have sent a prescription in for him to his preferred pharmacy. My office will be in touch with him in the next day or 2 to set up a nonemergent appointment. History of Present Illness History of Present Illness Chief Complaint: Obstructive uropathy Narrative: This is a 73-year-old gentleman who recently presented to the emergency department unable to urinate. His serum creatinine was 7.5. He had a Deleon catheter placed and over time, his serum creatinine has returned to baseline for him. He was discharged with a urethral catheter in place. The catheter was hooked to a leg bag. He has had multiple emergency room and urgent care visits for concerns regarding pain at the urethral meatus and some bleeding from the meatus as well. He was seen in urgent care this morning and directed to come to the emergency department. The emergency providers asked me to see this gentleman while he was here. He is wondering if he still needs his Deleon catheter. He tells me that when he was in the emergency department recently, they treated the urethral meatus with some cream and he was wondering if he might be able to get some again. He is also asking if the drainage tubing for his leg bag can be trimmed [facility] All Active Problems (Updated 05/19/24 @ 12:35 by LILI Garcia) Deleon catheter problem (Acute) MICHELLE (acute kidney injury) (Acute) Bladder outflow obstruction (Acute) Right hip pain (Acute) Hyperlipidemia (Acute) Diabetes mellitus (Chronic) He wants to stick with the glipizide for now. Will be glad to change him when he is ready. The diarrhea is the issue. He did not want any treatment for his perianal irritation as it is minimal right now. His another A1c in a few months. Also send him to [facility] for an evaluation. He has an A1c scheduled for month and a half from now and hopefully he will remember to go. 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 LARA Essential hypertension (Acute 08/24/13) Tubular adenoma (Acute 11/23/15) Medical History Family history of diabetes mellitus (02/18/16) Mother/Sister Abnormal glucose Congenital hearing loss Essential hypertension Family History Mother , 62 Diabetes Sister No problems noted. Social History Smoking/Tobacco Use Status: Never Second Hand Exposure: No Smoking risk assessment performed?: Yes Alcohol Intake: current Alcohol Intake frequency: holidays/special occasions only Alcohol type: beer, wine and hard liquor Drug use: Never Substance use type: does not use Counseling given: No Counseling provided: none Caregiver/Support person: No Household members: none Housing: house Communication Needs: Hard of Hearing Do you need help understanding health information?: Rarely Pets and animals: No Sexually active: No Do you think of yourself as: straight/heterosexual Current gender identity: male What is your relationship status?: never How often do you talk on the phone with friends or family?: once per week How often do you get together with friends or relatives?: twice per week How often do you attend protestant or congregational services?: decline to answer Do you belong to any clubs or organized social groups?: yes Panel score (0-1 are the most socially isolated patients): 2 What type of physical activity do you participate in: walking Duration: 30-45 minutes/day Frequency: 1-2 times per week Yahaira/Episcopalian: None Seatbelt use: always Helmet use: No 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 There is some old dried blood on his depends. I do not see any open skin on the scrotum, penis or glans There is a large amount of redundant tubing on his drainage leg bag Results Last Vital Signs Temp 35.9 C L 05/19/24 11:53 Pulse 66 05/19/24 11:53 Resp 18 05/19/24 11:53 BP 151/69 H 05/19/24 11:53 Pulse Ox 100 05/19/24 11:53
== END 2024-05-19 12:47 | disposition home or self-care (01) ==
PROVIDERS: Emergency Provider Physician Assistant; PCP Nurse Practitioner Family
DX: T83.84XA Pain due to genitourinary prosthetic devices, implants and grafts, initial encounter; N32.0 Bladder-neck obstruction; I10 Essential (primary) hypertension; E78.5 Hyperlipidemia, unspecified; E11.9 Type 2 diabetes mellitus without complications; Z79.84 Long term (current) use of oral hypoglycemic drugs; Z79.899 Other long term (current) drug therapy
CPT/HCPCS: 99283; 99284

== ENCOUNTER 2024-05-26 17:35 | Emergency (ER) | payer MEDICARE, SELFPAY ==
[2024-05-26 17:40] VITALS: BP 120/81; PULSE 99; RESP 20; TEMP 36.6; O2SAT 96
[2024-05-26 18:08] VITALS: BP 120/81; PULSE 99; RESP 20; TEMP 36.6; O2SAT 96
[2024-05-26 18:37] VITALS: PULSE 66
[2024-05-26] MEDS: Lidocaine 2% Jelly 6 ML SYR (19:37)
--- NOTE | 2024-05-26 19:57 | W.ED.GENAD ---
Discharge Plan Disposition Patient Disposition: Home Condition: Stable Discharge Details Clinical Impression: Deleon catheter problem, Bladder outflow obstruction, Cellulitis Primary Care Provider: Venus Yanez ED Provider: Madonna Avila Home Meds and New Rx's Prescriptions: New cephalexin 500 mg capsule 500 mg PO Q6H 6 Days Qty: 24 0RF Continued glipizide 10 mg tablet 10 mg PO BID Qty: 180 3RF nystatin 100,000 unit/gram ointment 1 applic topical BID Qty: 30 0RF Rx Instructions: Apply to the tip of the penis twice daily for 2-3 weeks. (DME) blood-glucose meter Misc See Rx Instructions .MEDSUPPLY Qty: 1 0RF Rx Instructions: As directed to check daily blood glucose. No insulin. Dispense covered brand. Dx: E11.9 to maintain HbA1c less than 7%. (DME) Blood Glucose Test Strip See Rx Instructions .MEDSUPPLY Qty: 100 3RF Rx Instructions: As directed to check daily blood glucose. No insulin. Dispense covered brand. Dx: E11.9 to maintain HbA1c less than 7%. (DME) lancets Misc See Rx Instructions .MEDSUPPLY Qty: 100 3RF Rx Instructions: As directed to check daily blood glucose. No insulin. Dispense covered brand. Dx: E11.9 to maintain HbA1c less than 7%. atorvastatin 20 mg tablet 20 mg PO QPM Qty: 90 3RF lisinopril 10 mg tablet 10 mg PO DAILY Qty: 90 3RF lidocaine HCl 2 % jelly in applicator 1 applic topical BID-QID PRN (Reason: pain) Qty: 250 2RF Rx Instructions: apply to urethral meatus as needed lisinopril-hydrochlorothiazide 20-12.5 mg tablet 1 tab PO DAILY Patient Comments: take 1 tablet by mouth every morning glipizide 5 mg tablet 5 mg PO BID Patient Comments: take 1 tablet by mouth twice a day No Action lisinopril-hydrochlorothiazide [Zestoretic] 20-12.5 mg tablet 1 tab PO QAM Qty: 90 3RF Discharge Instructions Instructions: Cellulitis (Skin Infection), Adult ED Additional Instructions: Take antibiotic as prescribed Yogurt daily while on the antibiotic Follow-up with Dr. Sewell tomorrow return with spreading redness, fever, worsening symptoms Continue to apply topical yeast medication and return earlier should you have new or worsening complaints Referrals: Rahul Sewell MD [ [facility] STAFF PHYSICIAN] - Venus Yanez NP [Primary Care Provider] - HPI General Date/Time Provider Initiated Documentation: 05/26/24 18:14. HPI Narrative: This 73-year-old male presents with report of Deleon catheter malfunction. Patient denies any fever or chills. He states that he was walking and his leg bag accidentally disconnected and was sent here for replacement. He also states he recently started on an antifungal for a yeast infection in his groin. Related Data Home Medications ?Medication ?Instructions ?Recorded ?Confirmed blood sugar diagnostic (Blood #100 ea 03/27/23 05/26/24 Glucose Test strips) blood-glucose meter #1 ea 03/27/23 05/26/24 lancets #100 ea 03/27/23 05/26/24 atorvastatin 20 mg tablet 20 mg PO QPM #90 tabs 05/14/23 05/26/24 lisinopril 10 mg tablet 10 mg PO DAILY #90 tabs 10/09/23 05/26/24 lisinopril 20 1 tab PO QAM #90 tabs 10/19/23 05/26/24 mg-hydrochlorothiazide 12.5 mg tablet (Zestoretic) lidocaine HCl 2 % mucosal jelly in 1 applic topical BID-QID PRN pain 05/19/24 05/26/24 applicator #250 mL cephalexin 500 mg capsule 500 mg PO Q6H 6 days #24 caps 05/26/24 glipizide 10 mg tablet 10 mg PO BID #180 tabs 05/26/24 05/26/24 glipizide 5 mg tablet 5 mg PO BID 05/26/24 05/26/24 lisinopril 20 1 tab PO DAILY 05/26/24 05/26/24 mg-hydrochlorothiazide 12.5 mg tablet nystatin 100,000 unit/gram topical 1 applic topical BID #30 grams 05/26/24 05/26/24 ointment Previous Rx's ?Medication ?Instructions ?Recorded blood sugar diagnostic (Blood #100 ea 03/27/23 Glucose Test strips) blood-glucose meter #1 ea 03/27/23 lancets #100 ea 03/27/23 atorvastatin 20 mg tablet 20 mg PO QPM #90 tabs 05/14/23 lisinopril 10 mg tablet 10 mg PO DAILY #90 tabs 10/09/23 lisinopril 20 1 tab PO QAM #90 tabs 10/19/23 mg-hydrochlorothiazide 12.5 mg tablet (Zestoretic) lidocaine HCl 2 % mucosal jelly in 1 applic topical BID-QID PRN pain 05/19/24 applicator #250 mL cephalexin 500 mg capsule 500 mg PO Q6H 6 days #24 caps 05/26/24 glipizide 10 mg tablet 10 mg PO BID #180 tabs 05/26/24 nystatin 100,000 unit/gram topical 1 applic topical BID #30 grams 05/26/24 ointment Allergies Allergy/AdvReac Type Severity Reaction Status Date / Time metformin AdvReac Intermediate diarrhea Verified 05/26/24 17:44 General Stated Complaint: Urinary JULIANNE: 4 Exam Narrative Exam Narrative: Alert and oriented 73-year-old male, has indwelling Deleon catheter with erythema on the glans that is painful, no abdominal tenderness, no drainage from the urethra Course Vital Signs Vital signs: Vital Signs Temperature 36.6 C 05/26/24 17:40 Pulse 99 H 05/26/24 17:40 Respiratory Rate 20 05/26/24 17:40 Blood Pressure 120/81 05/26/24 17:40 Pulse Oximetry 96 05/26/24 17:40 Temperature 36.6 C 05/26/24 18:08 Temperature Source Tympanic 05/26/24 18:08 Pulse 66 05/26/24 18:37 Respiratory Rate 20 05/26/24 18:08 Respiratory Effort Normal, Non-Labored 05/26/24 18:07 Blood Pressure 120/81 05/26/24 18:08 Pulse Oximetry 96 05/26/24 18:08 Oxygen Delivery Method Room Air 05/26/24 18:08 Oxygen Flow Rate 0 05/26/24 18:08 Pain Level 0 05/26/24 18:08 Medical Decision Making 73-year-old male with indwelling Deleon catheter secondary to bladder outlet obstruction, Deleon catheter was removed by nursing staff and there is erythema to the entire glans, this is tender, concern for possible cellulitis, once Deleon catheter was removed, there was some ulceration along the urethral meatus, as patient was unable to urinate successfully, Deleon catheter was reintroduced and patient tolerated procedure without incident. He is placed on urology follow-up for tomorrow. Patient is otherwise afebrile and nontoxic, he is ambulatory with steady gait. Quality:SDOH Health Related Social Needs: No Data to Display [facility] All Active Problems (Updated 05/26/24 @ 19:58 by LILI Yun) Cellulitis (Acute) [place] infection (Acute) Deleon catheter problem (Acute) MICHELLE (acute kidney injury) (Acute) Bladder outflow obstruction (Acute) Right hip pain (Acute) Hyperlipidemia (Acute) Diabetes mellitus (Chronic) He wants to stick with the glipizide for now. Will be glad to change him when he is ready. The diarrhea is the issue. He did not want any treatment for his perianal irritation as it is minimal right now. His another A1c in a few months. Also send him to [facility] for an evaluation. He has an A1c scheduled for month and a half from now and hopefully he will remember to go. 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 LARA Essential hypertension (Chronic 08/24/13) Tubular adenoma (Acute 11/23/15) Medical History Family history of diabetes mellitus (02/18/16) Mother/Sister Abnormal glucose Congenital hearing loss Essential hypertension Family History Mother , 62 Diabetes Sister No problems noted. Social History (Updated 05/26/24 @ 16:10 by Briseida Tong) Smoking/Tobacco Use Status: Never Second Hand Exposure: No Smoking risk assessment performed?: Yes Alcohol Intake: current Alcohol Intake frequency: holidays/special occasions only Alcohol type: beer, wine and hard liquor Drug use: Never Substance use type: does not use Counseling given: No Counseling provided: none Caregiver/Support person: No Household members: none Housing: house Communication Needs: Hard of Hearing Do you need help understanding health information?: Rarely Pets and animals: No Sexually active: No Do you think of yourself as: straight/heterosexual Current gender identity: male What is your relationship status?: never How often do you talk on the phone with friends or family?: once per week How often do you get together with friends or relatives?: twice per week How often do you attend mandaeism or yazidi services?: decline to answer Do you belong to any clubs or organized social groups?: yes Panel score (0-1 are the most socially isolated patients): 2 What type of physical activity do you participate in: walking Duration: 30-45 minutes/day Frequency: 1-2 times per week Yahaira/Hindu: None Seatbelt use: always Helmet use: No Drive intox or ride w/intox driver guard: No Do you feel safe at home: Yes Do you feel safe in your relationship?: Yes
[2024-05-26] MEDS: Cephalexin 500 MG CAP, 4 CAPS/BTL PO (20:15)
[2024-05-26 20:47] VITALS: BP 143/69; PULSE 82; RESP 16; O2SAT 97
[2024-05-26] MEDS: Normal Saline-STERILE FIELD 0.9% 10 ML SYR (20:47)
== END 2024-05-26 20:49 | disposition home or self-care (01) ==
PROVIDERS: Emergency Provider Physician Assistant; PCP Nurse Practitioner Family
DX: T83.028A Displacement of other urinary catheter, initial encounter (principal); N48.22 Cellulitis of corpus cavernosum and penis; I10 Essential (primary) hypertension; E11.9 Type 2 diabetes mellitus without complications; Z79.84 Long term (current) use of oral hypoglycemic drugs
CPT/HCPCS: 99283

== ENCOUNTER 2024-05-27 09:55 | Emergency (ER) | payer MEDICARE, SELFPAY ==
--- NOTE | 2024-05-27 09:58 | W.ED.GENAD ---
Discharge Plan Disposition Patient Disposition: Home Discharge Details Clinical Impression: Deleon catheter problem Primary Care Provider: Venus Yanez ED Provider: Neri Pruitt Home Meds and New Rx's Prescriptions: Continued glipizide 10 mg tablet 10 mg PO BID Qty: 180 3RF nystatin 100,000 unit/gram ointment 1 applic topical BID Qty: 30 0RF Rx Instructions: Apply to the tip of the penis twice daily for 2-3 weeks. (DME) blood-glucose meter Misc See Rx Instructions .MEDSUPPLY Qty: 1 0RF Rx Instructions: As directed to check daily blood glucose. No insulin. Dispense covered brand. Dx: E11.9 to maintain HbA1c less than 7%. (DME) Blood Glucose Test Strip See Rx Instructions .MEDSUPPLY Qty: 100 3RF Rx Instructions: As directed to check daily blood glucose. No insulin. Dispense covered brand. Dx: E11.9 to maintain HbA1c less than 7%. (DME) lancets Misc See Rx Instructions .MEDSUPPLY Qty: 100 3RF Rx Instructions: As directed to check daily blood glucose. No insulin. Dispense covered brand. Dx: E11.9 to maintain HbA1c less than 7%. atorvastatin 20 mg tablet 20 mg PO QPM Qty: 90 3RF lisinopril 10 mg tablet 10 mg PO DAILY Qty: 90 3RF lidocaine HCl 2 % jelly in applicator 1 applic topical BID-QID PRN (Reason: pain) Qty: 250 2RF Rx Instructions: apply to urethral meatus as needed lisinopril-hydrochlorothiazide 20-12.5 mg tablet 1 tab PO DAILY Patient Comments: take 1 tablet by mouth every morning glipizide 5 mg tablet 5 mg PO BID Patient Comments: take 1 tablet by mouth twice a day cephalexin 500 mg capsule 500 mg PO Q6H 6 Days Qty: 24 0RF No Action lisinopril-hydrochlorothiazide [Zestoretic] 20-12.5 mg tablet 1 tab PO QAM Qty: 90 3RF Discharge Instructions Additional Instructions: You were seen in the emergency department for your catheter problem. Your catheter appears to be working well. Please do not tug on your catheter. Please continue taking your antibiotics as previously prescribed. Please follow-up with your urologist next week. Please return to the emergency department if you develop fevers chills nausea or vomiting. Discharge Data Discharge Date/Time-TO BE ENTERED AT DEPARTURE: 05/27/24 11:07 HPI General Date/Time Provider Initiated Documentation: 05/27/24 09:58. HPI Narrative: MDM This is an overall very well-appearing normothermic and not tachycardic 73-year-old male with indwelling Deleon catheter and history of manipulating his Deleon catheter but reassuring bladder scan and no signs of sepsis for which patient was discharged with empiric trial of expectant outpatient management. I considered sepsis however the patient's vitals are reassuring and has not had any fevers I did not send blood cultures she empirically with IV antibiotics nor check a lactate. No pain out of proportion to suggest necrotizing soft tissue infection. No recent falls to suggest increased risk for intra-abdominal hemorrhage. Patient has been adherent with his antibiotics and has had no fevers so not suspicious for acute urinary tract infection. Patient is not anticoagulated and denies hematuria so I am not suspicious for clot hematuria. No signs of Oswald's gangrene. Patient is circumcised and so I am not suspicious for paraphimosis. Patient reported emptying his leg bag this morning having approximately 100 cc. Patient has been tolerating p.o. so do not feel he requires assessment of labs as he does not appear dehydrated so I am not suspicious for any acute kidney injuries. No flank pain to suggest ureterolithiasis. Urinalysis was nitrate negative not consistent with UTI. Patient did have large blood and greater than 50 RBCs per high-powered field. Given that he was not retaining I did not feel that he required hand irrigation nor CBI. I suspect his hematuria is secondary to inadvertently inflicted urethral trauma secondary to manipulation of his catheter. No syncope nor hypotension to suggest ruptured AAA. Patient and I discussed that he should avoid manipulating his catheter. We discussed that he should also follow-up with urology next week and his primary care provider. We discussed that he should return to the ED if he develops abdominal pain nausea vomiting or if he has no urine output in 8 hours. He understood his return indications and is discharged with empiric trial of expectant outpatient management. HPI This 73-year-old male arrived to the emergency department via private vehicle in the setting of urine leaking around his catheter. Patient notes that this began this morning. He does note that he has been tugging at his catheter. He denies flank pain fevers abdominal pain nausea vomiting chest pain shortness of breath. He has been adherent with his home cephalexin. He does not take an anticoagulant. He has not noticed any blood in his Deleon catheter bag. Exam General: Well-appearing in no acute distress speaking in complete sentences. Head: Normocephalic, atraumatic. Eye: Extraocular eye movements intact. No conjunctival injection. No scleral icterus. Ear, nose, mouth, throat: Grossly normal inspection. Normal voice, handling secretions normally. Neck: Trachea midline. Cardiovascular: Well-perfused distal extremities. Respiratory: Nonlabored respiration. Gastrointestinal: Nondistended abdomen. Soft nontender : Circumcised penis. No hematuria. No signs of Oswald's gangrene. Leg bag in place draining clear/yellow urine. No gross hematuria. Musculoskeletal: No edema. Moving all 4 extremities spontaneously. Skin: Normal for age and race, grossly normal temperature and turgor. No acute rash. Neurologic: Alert and appropriate, no apparent acute deficits. Psychiatric: Mood and manner are appropriate. Grooming and personal hygiene are appropriate. Related Data Home Medications ?Medication ?Instructions ?Recorded ?Confirmed blood sugar diagnostic (Blood #100 ea 03/27/23 05/26/24 Glucose Test strips) blood-glucose meter #1 ea 03/27/23 05/26/24 lancets #100 ea 03/27/23 05/26/24 atorvastatin 20 mg tablet 20 mg PO QPM #90 tabs 05/14/23 05/26/24 lisinopril 10 mg tablet 10 mg PO DAILY #90 tabs 10/09/23 05/26/24 lisinopril 20 1 tab PO QAM #90 tabs 10/19/23 05/26/24 mg-hydrochlorothiazide 12.5 mg tablet (Zestoretic) lidocaine HCl 2 % mucosal jelly in 1 applic topical BID-QID PRN pain 05/19/24 05/26/24 applicator #250 mL cephalexin 500 mg capsule 500 mg PO Q6H 6 days #24 caps 05/26/24 05/27/24 glipizide 10 mg tablet 10 mg PO BID #180 tabs 05/26/24 05/26/24 glipizide 5 mg tablet 5 mg PO BID 05/26/24 05/27/24 lisinopril 20 1 tab PO DAILY 05/26/24 05/27/24 mg-hydrochlorothiazide 12.5 mg tablet nystatin 100,000 unit/gram topical 1 applic topical BID #30 grams 05/26/24 05/26/24 ointment Previous Rx's ?Medication ?Instructions ?Recorded blood sugar diagnostic (Blood #100 ea 03/27/23 Glucose Test strips) blood-glucose meter #1 ea 03/27/23 lancets #100 ea 03/27/23 atorvastatin 20 mg tablet 20 mg PO QPM #90 tabs 05/14/23 lisinopril 10 mg tablet 10 mg PO DAILY #90 tabs 10/09/23 lisinopril 20 1 tab PO QAM #90 tabs 10/19/23 mg-hydrochlorothiazide 12.5 mg tablet (Zestoretic) lidocaine HCl 2 % mucosal jelly in 1 applic topical BID-QID PRN pain 05/19/24 applicator #250 mL cephalexin 500 mg capsule 500 mg PO Q6H 6 days #24 caps 05/26/24 glipizide 10 mg tablet 10 mg PO BID #180 tabs 05/26/24 nystatin 100,000 unit/gram topical 1 applic topical BID #30 grams 05/26/24 ointment Allergies Allergy/AdvReac Type Severity Reaction Status Date / Time metformin AdvReac Intermediate diarrhea Verified 05/27/24 10:04 General JULIANNE: 4 Medical Decision Making Quality:SDOH Health Related Social Needs: No Data to Display PFSH All Active Problems (Updated 05/27/24 @ 10:56 by Neri Pruitt MD) Cellulitis (Acute) [place] infection (Acute) Deleon catheter problem (Acute) MICHELLE (acute kidney injury) (Acute) Bladder outflow obstruction (Acute) Right hip pain (Acute) Hyperlipidemia (Acute) Diabetes mellitus (Chronic) He wants to stick with the glipizide for now. Will be glad to change him when he is ready. The diarrhea is the issue. He did not want any treatment for his perianal irritation as it is minimal right now. His another A1c in a few months. Also send him to [facility] eye care for an evaluation. He has an A1c scheduled for month and a half from now and hopefully he will remember to go. 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 LARA Essential hypertension (Chronic 08/24/13) Tubular adenoma (Acute 11/23/15) Medical History Family history of diabetes mellitus (02/18/16) Mother/Sister Abnormal glucose Congenital hearing loss Essential hypertension Family History Mother , 62 Diabetes Sister No problems noted. Social History (Updated 05/26/24 @ 16:10 by Briseida Tong) Smoking/Tobacco Use Status: Never Second Hand Exposure: No Smoking risk assessment performed?: Yes Alcohol Intake: current Alcohol Intake frequency: holidays/special occasions only Alcohol type: beer, wine and hard liquor Drug use: Never Substance use type: does not use Counseling given: No Counseling provided: none Caregiver/Support person: No Household members: none Housing: house Communication Needs: Hard of Hearing Do you need help understanding health information?: Rarely Pets and animals: No Sexually active: No Do you think of yourself as: straight/heterosexual Current gender identity: male What is your relationship status?: never How often do you talk on the phone with friends or family?: once per week How often do you get together with friends or relatives?: twice per week How often do you attend scientology or zoroastrianism services?: decline to answer Do you belong to any clubs or organized social groups?: yes Panel score (0-1 are the most socially isolated patients): 2 What type of physical activity do you participate in: walking Duration: 30-45 minutes/day Frequency: 1-2 times per week Yahaira/Zoroastrian: None Seatbelt use: always Helmet use: No Drive intox or ride w/intox stacker driver: No Do you feel safe at home: Yes Do you feel safe in your relationship?: Yes
[2024-05-27 10:03] VITALS: BP 123/77; PULSE 95; RESP 18; TEMP 36.8; O2SAT 98
[2024-05-27 10:42] LABS: Bilirubin Negative (Negative); Blood Large (Negative); Clarity Sl Cloudy (Clear); Glucose Negative (Negative); Ketones 15 mg/dL (Negative); Leukocyte Esterase Small (Negative); Nitrite Negative (Negative); Specific Gravity 1.025 (1.005-1.025); pH 6.5 (5-8)
[2024-05-27 11:03] VITALS: BP 120/75; PULSE 80; O2SAT 98
[2024-05-27 11:15] LABS: Epithelial Cells Rare HPF (Negative); RBC >50 HPF (0-2)
[2024-05-27 11:16] LABS: Bacteria Few HPF (Negative); C & S Indicated? No; Casts Negative LPF (Negative); Crystals Negative HPF (Negative); Mucus Negative (Negative)
--- NOTE | 2024-05-30 07:28 | NUR.NOTE ---
Access chart to reconcile EKG orders with EKG's in [facility]. Order deleted, no EKG in [facility]. Nursing Note:
== END 2024-05-27 11:07 | disposition home or self-care (01) ==
PROVIDERS: Emergency Provider Emergency Medicine; PCP Nurse Practitioner Family
DX: T83.038A Leakage of other urinary catheter, initial encounter (principal); I10 Essential (primary) hypertension; E11.9 Type 2 diabetes mellitus without complications; Z79.84 Long term (current) use of oral hypoglycemic drugs
CPT/HCPCS: 99283; 81003; 81015

== ENCOUNTER 2024-06-06 15:29 | Outpatient (REF) | payer MEDICARE, SELFPAY ==
[2024-06-06 21:18] LABS: Abs Immature Grans 0.03 10^3/uL (0.0-0.06); Absolute Basophil Count 0.04 10^3/uL (0.0-0.2); Absolute Eosinophil Count 0.11 10^3/uL (0.0-0.7); Absolute Lymphocyte Count 1.83 10^3/uL (1.2-3.4); Absolute Monocyte Count 0.77 10^3/uL (0.1-0.8); Basophils % 0.5 %; Eosinophils % 1.3 %; HCT 39.4 % (40.0-50.0); HGB 13.9 g/dL (13.5-17.5); Immature Grans % 0.3 %; Lymphocytes % 21.1 %; MCH 28.8 pg (27.0-33.0); MCHC 35.3 % (32.0-36.0); MCV 82 fL (80-95); MPV 10.4 fL (8.0-11.0); Monocytes % 8.9 %; Neutrophils % 67.9 %; Platelet Count 462 10^3/uL (130-400); RBC 4.83 10^6/uL (4.36-5.78); RDW 11.7 % (11.8-14.1); RDW-SD 34.1 fL; WBC 8.68 10^3/uL (4.4-10.8)
[2024-06-06 21:42] LABS: ALT 25 U/L (16-63); AST 17 U/L (15-37); Albumin 3.7 g/dL (3.4-5.0); Alkaline Phosphatase 85 U/L (46-116); Anion Gap 12.5 mmol/L (3-11); BUN 27 mg/dL (7-18); Bilirubin, Total 0.52 mg/dL (0.2-1.0); CO2 23.5 mmol/L (21.0-32.0); CREATININE 1.4 mg/dL (0.70-1.30); Calcium 9.6 mg/dL (8.5-10.1); Chloride 101 mmol/L (98-107); Estimated GFR 52.41 (mL/min/1.73m2); Glucose 159 mg/dL (74-106); Potassium 4.3 mmol/L (3.5-5.1); Sodium 137 mmol/L (136-145)
[2024-06-07 18:51] LABS: PSA, Screening 6.5 ng/mL (<=6.5)
== END 2024-06-06 15:30 | disposition home or self-care (01) ==
LOC: LBN 15:29
PROVIDERS: PCP Nurse Practitioner Family; Visit Provider Nurse Practitioner Family
DX: N32.0 Bladder-neck obstruction (principal); N17.9 Acute kidney failure, unspecified; I10 Essential (primary) hypertension; E11.9 Type 2 diabetes mellitus without complications; Z12.5 Encounter for screening for malignant neoplasm of prostate
CPT/HCPCS: 80053; 84153; 85025

== ENCOUNTER → 2024-06-16 09:59 | Outpatient (BNVA) | payer MEDICARE, SELFPAY | PROVIDERS: PCP Nurse Practitioner Family; Referring Provider Nurse Practitioner Family; Visit Provider Urology ==

== ENCOUNTER 2024-06-16 13:08 | Outpatient (CLI) | payer MEDICARE, SELFPAY ==
[2024-06-16 14:27] LABS: TSH (W/Ref FT4) 2.14 uIU/mL (0.36-3.74); Vitamin D 25 Total 12.5 ng/mL (30-100)
== END 2024-06-16 13:09 | disposition home or self-care (01) ==
LOC: LBO 13:08
PROVIDERS: PCP Nurse Practitioner Family; Visit Provider Nurse Practitioner Family
DX: R53.83 Other fatigue (principal); E55.9 Vitamin D deficiency, unspecified
CPT/HCPCS: 36415; 51702; 82306; 99215; 84443

== ENCOUNTER 2024-07-04 07:11 | Observation (INO) | payer MEDICARE, SELFPAY ==
[2024-07-04] VITALS (51 sets, daily range): BP systolic 54–147; BP diastolic 23–89; PULSE 69–101; RESP 9–20; TEMP 35.8–36.6; O2SAT 90–100; BMI 23.2
[2024-07-04] MEDS: Lactated Ringers 1,000 ML 80 ML IV (07:49)
--- NOTE | 2024-07-04 08:08 | W.ANESPRE ---
General Info Date of Service Date Performed: 07/04/24 Height: 5 ft 9 in Weight: 71.3 kg Body Mass Index (BMI): 23.2 Surgical Procedure: Operation Date: 07/04/24 08:55 Proposed Procedure Side Surgeon p Simple Retropubic Prostatectomy Rahul Sewell MD Meds Allergies and Home Medications Allergies Allergy/AdvReac Type Severity Reaction Status Date / Time metformin AdvReac Intermediate diarrhea Verified 07/01/24 12:06 Home Medication ?Medication ?Instructions ?Recorded blood sugar diagnostic (Blood #100 ea 03/27/23 Glucose Test strips) blood-glucose meter #1 ea 03/27/23 lancets #100 ea 03/27/23 lidocaine HCl 2 % mucosal jelly in 1 applic topical BID-QID PRN pain 05/19/24 applicator #250 mL nystatin 100,000 unit/gram topical 1 applic topical BID #30 grams 05/26/24 ointment atorvastatin 20 mg tablet 20 mg PO QPM #90 tabs 06/06/24 lisinopril 20 1 tab PO DAILY #90 tabs 06/06/24 mg-hydrochlorothiazide 12.5 mg tablet glipizide 5 mg tablet 5 mg PO BID #180 tabs 06/13/24 omeprazole 20 mg capsule,delayed 20 mg PO DAILY #90 caps 06/13/24 release Current Visit Medications: Current Medications Generic Name Dose Route Start Last Admin Trade Name Freq PRN Reason Stop Dose Admin Ringer's Solution 1,000 mls @ 80 mls/hr 07/04/24 06:00 07/04/24 07:49 IV 07/04/24 23:59 80 mls/hr INFUSION JUNE Administration Cefazolin Sodium/Dextrose 2 gm in 50 mls @ 100 mls/hr 07/04/24 06:00 Ancef Duplex IVPB 07/04/24 23:59 PREOP JUNE IV Miscellaneous Supplies 1 each 07/04/24 06:00 Iv Access IV 07/04/24 23:59 DIRECTED JUNE Sodium Chloride 0 ml 07/04/24 06:00 Normal Saline Flush 10 Ml Syr IV 07/04/24 23:59 PRN PRN Sodium Chloride 0 ml 07/04/24 06:00 Normal Saline 10 Ml Vial IJ 07/04/24 23:59 DIRECTED PRN Sterile Water 0 ml 07/04/24 06:00 Water,Injection,Sterile 10 Ml Vial IJ 07/04/24 23:59 DIRECTED PRN PFS Active Problems Active Problems: Problem Status Onset Code Obstructive uropathy Acute N13.9 Fatigue Acute R53.83 [place] infection Acute B37.9 Right hip pain Acute M25.551 Hyperlipidemia Acute E78.5 Diabetes mellitus Chronic E11.9 Congenital hearing disorder Acute 08/24/13 H90.5 Diverticulosis Acute K57.90 Essential hypertension Chronic 08/24/13 I10 Tubular adenoma Acute 11/23/15 D36.9 Medical History Medical History Family history of diabetes mellitus (02/18/16) Mother/Sister Abnormal glucose Congenital hearing loss Essential hypertension Tobacco Smoking/Tobacco Use Status: Never Passive smoking exposure: No Second hand exposure: No Alcohol Alcohol Intake: current Alcohol intake frequency: holidays/special occasions only Alcohol type: beer, wine and hard liquor Substance Use Substance use: Never Substance use type: does not use Counseling provided: none Vital Signs and Lab Results Vital Signs Most Recent Vital Signs in EMR: Most Recent Vital Signs Temp Pulse Resp BP Pulse Ox 36.6 C 87 18 135/71 99 07/04/24 07:24 07/04/24 07:24 07/04/24 07:24 07/04/24 07:24 07/04/24 07:24 Point of Care Results Point of Care Results: Finger Stick Blood Glucose 146 07/04/24 07:26 Lab Results Blood Type / Crossmatch: No Data to Display Complete Blood Count: White Blood Count 8.68 10^3/uL (4.4-10.8) 06/06/24 14:50 Red Blood Count 4.83 10^6/uL (4.36-5.78) 06/06/24 14:50 Hemoglobin 13.9 g/dL (13.5-17.5) 06/06/24 14:50 Hematocrit 39.4 % (40.0-50.0) L 06/06/24 14:50 Platelet Count 462 10^3/uL (130-400) H 06/06/24 14:50 Complete Metabolic Panel: Sodium 137 mmol/L (136-145) 06/06/24 14:50 Potassium 4.3 mmol/L (3.5-5.1) 06/06/24 14:50 Chloride 101 mmol/L (98-107) 06/06/24 14:50 Carbon Dioxide 23.5 mmol/L (21.0-32.0) 06/06/24 14:50 BUN 27 mg/dL (7-18) H 06/06/24 14:50 Creatinine 1.4 mg/dL (0.70-1.30) H 06/06/24 14:50 Est GFR (CKD-EPI 2020) 52.41 (mL/min/1.73m2) 06/06/24 14:50 Calcium 9.6 mg/dL (8.5-10.1) 06/06/24 14:50 Albumin 3.7 g/dL (3.4-5.0) 06/06/24 14:50 Glucose 159 mg/dL (74-106) H 06/06/24 14:50 Liver Function Panel: Alanine Aminotransferase (ALT/SGPT) 25 U/L (16-63) 06/06/24 14:50 Aspartate Amino Transf (AST/SGOT) 17 U/L (15-37) 06/06/24 14:50 Coagulation Panel: No Data to Display Cardiac Panel: No Data to Display Arterial Blood Gas: No Data to Display Venous Blood Gas: No Data to Display Pancreas Panel: No Data to Display Thyroid Panel: Thyroid Stimulating Hormone (TSH) 2.14 uIU/mL (0.36-3.74) 06/16/24 12:49 Infectious Disease: No Data to Display Blood Cultures: No Data to Display Toxicology Panel: No Data to Display Anesthesia Assessment and Plan Anesthesia History Personal History: No History of Anesthesia Complications Family History: No Family History of Anesthesia Complications Exercise Tolerance Exercise Tolerance: Metabolic Equivalents>4 Cardiac & Pulmonary Exam Cardiac Exam: Normal S1/S2 Heart Sounds Pulmonary Exam: Clear Bilateral Breath Sounds Implantable Cardiac Device Does patient have a Pacemaker or an ICD?: No Airway Exam Known Difficult Airway: No Mallampati Class: 3 Mouth Opening: Narrow (< 3cm) Thyromental Distance: Less than 3 cm Neck Range of Motion: Limited ROM Neck Circumference: Normal Teeth Condition: Normal Dentition ASA Classification ASA Score: ASA 2 Emergency Case?: No NPO Status NPO Status: NPO Clears >2 hours, Solids >8 hours Anesthesia Plan Resuscitation Status: Full Code Anesthesia Technique: General Anesthesia Airway Planned: Endotracheal Tube Monitors Used: Standard Monitors Preoperative Comments:: 73 yo male for retropubic prostatectomy. Sig PMHx: HTN (lisinopril, HCTZ. Checks his BP at [place], states he is well controlled), DM (glipizide), GERD (omeprazole, related with food), never smoker, occ EtOH. Discussed likely 2nd IV. Appropriately NPO, but is not hungry.
--- NOTE | 2024-07-04 08:15 | W.PM.HP.N ---
Date of service: 07/04/24 Time of Service: 08:36 Assessment and Plan Assessment and plan (1) Obstructive uropathy: Status: Acute Assessment and plan: Given the size of his prostate, we have arranged for simple retropubic prostatectomy. He will stay in the hospital for continuous bladder irrigation after the procedure History of Present Illness History of Present Illness Chief Complaint: Obstructive uropathy Narrative: This is a 73-year-old gentleman who presented to the emergency department with an elevated creatinine of 7.5 and urinary retention. He was treated with placement of a urethral catheter. He is renal function returned to baseline with catheter drainage. Prior to the ER visit, he was having urinary frequency and overflow incontinence. He has no history of urinary tract infections or kidney stones. He has been imaged with CT scans and it is estimated that his prostate is over 100 cc in volume. Who presents for simple retropubic prostatectomy for his bladder outlet obstruction. Review of Systems Narrative: No fevers or chills Decreased hearing acuity. No vision change or dysphasia Diabetes. No thyroid dysfunction No shortness of breath, cough or hemoptysis No chest pain or palpitations GERD. No hepatitis, ulcers, jaundice No seizures, strokes or peripheral neuropathy No bleeding disorders or anemia Arthralgia. No gout PFSH All Active Problems Obstructive uropathy (Acute) Fatigue (Acute) [place] infection (Acute) Right hip pain (Acute) Hyperlipidemia (Acute) Diabetes mellitus (Chronic) He wants to stick with the glipizide for now. Will be glad to change him when he is ready. The diarrhea is the issue. He did not want any treatment for his perianal irritation as it is minimal right now. His another A1c in a few months. Also send him to [facility] for an evaluation. He has an A1c scheduled for month and a half from now and hopefully he will remember to go. 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 LARA Essential hypertension (Chronic 08/24/13) Tubular adenoma (Acute 11/23/15) Medical History Family history of diabetes mellitus (02/18/16) Mother/Sister Abnormal glucose Congenital hearing loss Essential hypertension Family History Mother , 62 Diabetes Sister No problems noted. Social History (Updated 05/26/24 @ 16:10 by Briseida Tong) Smoking/Tobacco Use Status: Never Second Hand Exposure: No Smoking risk assessment performed?: Yes Alcohol Intake: current Alcohol Intake frequency: holidays/special occasions only Alcohol type: beer, wine and hard liquor Drug use: Never Substance use type: does not use Counseling given: No Counseling provided: none Caregiver/Support person: No Household members: none Housing: house Communication Needs: Hard of Hearing Do you need help understanding health information?: Rarely Pets and animals: No Sexually active: No Do you think of yourself as: straight/heterosexual Current gender identity: male What is your relationship status?: never How often do you talk on the phone with friends or family?: once per week How often do you get together with friends or relatives?: twice per week How often do you attend sikh or amish services?: decline to answer Do you belong to any clubs or organized social groups?: yes Panel score (0-1 are the most socially isolated patients): 2 What type of physical activity do you participate in: walking Duration: 30-45 minutes/day Frequency: 1-2 times per week Yahaira/Presybeterian: None Seatbelt use: always Helmet use: No 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 Additional Social history: [facility] Meds Allergies and Home Medications Allergies Allergy/AdvReac Type Severity Reaction Status Date / Time metformin AdvReac Intermediate diarrhea Verified 07/01/24 12:06 Home Medications ?Medication ?Instructions ?Recorded ?Confirmed ?Type blood sugar diagnostic (Blood #100 ea 03/27/23 06/17/24 Rx Glucose Test strips) blood-glucose meter #1 ea 03/27/23 06/17/24 Rx lancets #100 ea 03/27/23 06/17/24 Rx lidocaine HCl 2 % mucosal jelly in 1 applic topical BID-QID PRN pain 05/19/24 07/01/24 Rx applicator #250 mL nystatin 100,000 unit/gram topical 1 applic topical BID #30 grams 05/26/24 07/01/24 Rx ointment atorvastatin 20 mg tablet 20 mg PO QPM #90 tabs 06/06/24 07/04/24 Rx lisinopril 20 1 tab PO DAILY #90 tabs 06/06/24 07/04/24 Rx mg-hydrochlorothiazide 12.5 mg tablet glipizide 5 mg tablet 5 mg PO BID #180 tabs 06/13/24 07/04/24 Rx omeprazole 20 mg capsule,delayed 20 mg PO DAILY #90 caps 06/13/24 07/04/24 Rx release Exam Const General: cooperative Neck Neck: supple Resp Effort & Inspection: normal respiratory effort Auscultation: clear to auscultation bilaterally Cardio Rate: regular rate Rhythm: regular rhythm GI Inspection: normal to inspection Palpation: soft and no masses Other: frazier catheter in place Neuro General: patient alert, patient awake and patient oriented x3 Results Last Vital Signs Temp 36.6 C 07/04/24 07:24 Pulse 87 07/04/24 07:24 Resp 18 07/04/24 07:24 BP 135/71 07/04/24 07:24 Pulse Ox 99 07/04/24 07:24 Time Spent Time spent with Patient: <40 minutes Time was spent: other
[2024-07-04] MEDS: ceFAZolin 2 GM/50 ML BAG IVPB (09:40)
[2024-07-04] MEDS: Bupivacaine 0.25% Pres-Free W/EPI 30 ML VIAL (10:15)
--- NOTE | 2024-07-04 10:20 | PROST_PTH ---
PATIENT: Alin Tucker LOC: U#:[id number] AGE/SX: 73/M ROOM: 216 RE07/04/[address]: Rahul Sewell MD : [id number] BED: A DIS: 07/05/2024 SPEC #: [id number] RECD: 07/04/24 13:20 STATUS: MARE REQ #: [id number] SARAH: 07/04/24 10:[address]: Rahul Sewell DEPT: Surgical Specimen RECD BY: Madonna Tiwari ENTERED: 07/04/24 13:20 SP TYPE: PROST OTHR DR: Venus Yanez NP Tissues: 1 - PROSTATE RESECTION Procedures: GROSS AND MICRO LEVEL 6 Comments: [id number]
--- NOTE | 2024-07-04 11:07 | W.PM.OP ---
Date of service: 07/04/24 Time of Service: 11:07 Operative Note Operative Note DATE OF PROCEDURE: 07/04/24 PRE-OP DIAGNOSIS: Obstructive uropathy POST-OP DIAGNOSIS: same PROCEDURE: simple retropubic prostatectomy SURGEON: Rahul Sewell ASSISTING SURGEON: Mauricio Vora ANESTHESIA TYPE: Local By Surgeon and General LMA/ETT Refer to Anesthesia Record ESTIMATED BLOOD LOSS: 200 PATHOLOGY: other (prostate) COMPLICATIONS: None Patient was transported to: PACU Patient's condition: stable Implants: 20 [place] Coude tipped irrigating catheter with 50 cc sterile water in balloon Indications: This is a 73-year-old gentleman who presented to the emergency department with an elevated serum creatinine and urinary retention. The Deleon catheter was placed in his creatinine returned to baseline. He has had an indwelling catheter since the initial episode. From his imaging studies, it appears that his prostate is over 100 g in size. He presents for simple retropubic prostatectomy Findings: Enlarged prostate Procedure Description: The patient is given IV antibiotics and brought to the operating room on 07/04/2024. After induction of general anesthesia, he is placed in the supine position. His indwelling urethral catheter balloon is deflated and the catheter was removed. His lower abdomen and genitalia were then prepped and draped. A new 16 [place]ian catheter was passed through the urethra into the bladder. The catheter balloon was inflated with 20 cc of saline. A Pfannenstiel incision was made and extended down through the subcutaneous fat until the rectus fascia was identified. The fascia was opened along the course of the incision. The underside of the fascia was's freed from the rectus muscle using sharp and blunt dissection. We then retracted the bellies of the rectus muscle laterally and came down into the retroperitoneum right on top of the bladder. We then used a Bookwalter retractor to gain exposure to the prostate by retracting the bladder cranially. The fat overlying the prostate was then dissected free using the long tipped Bovie. The prostate was identified both by palpation and by visual inspection. The prostatic capsule was opened using the Bovie and a plane was developed between the capsule and the prostatic adenoma. Using sharp and blunt dissection, we were able to free up the entire prostatic adenoma. At the urethral end, we utilized finger fracture to transect the urethra. At the bladder neck, we incised the urethra sharply. The prostatic specimen was then extracted and sent to the lab for permanent section. We packed the prostatic capsule with lap pads and inspected for hemostasis. No active arterial bleeding was identified. We then passed a 20 [place] coud? tipped irrigating catheter through the urethra. Once the catheter was visualized we directed it into the bladder. We inflated the catheter balloon with 50 cc of sterile water. The prostatic capsule was then reapproximated with figure of 8 0 Vicryl sutures. The catheter hand irrigated easily and the irrigant was clear. We then started continuous bladder irrigation and hooked the catheter to gravity drainage. The rectus fascia was closed with 2 segments of #1 PDS on a looped suture. The skin was then closed with 4-0 Monocryl in a subcuticular suture. Skin glue was then applied followed by a dry sterile dressing. The patient tolerated this procedure well with no complications. He was taken to the recovery room in stable condition.
[2024-07-04] MEDS: Oxybutynin 5 MG TAB PO ×2 (11:33→19:49)
[2024-07-04] MEDS: HYDROmorphone 1 MG/ML SYR IVP (11:54)
--- NOTE | 2024-07-04 11:59 | W.ANESPOSTOP ---
Postoperative Evaluation Date, Time and Location Date Performed: 07/04/24 Time Performed: 11:59 Patient Location: PACU Vital Signs Most Recent Imported Vital Signs: Most Recent Vital Signs Temp Pulse Resp BP Pulse Ox 36.3 C L 77 13 123/56 L 100 07/04/24 11:43 07/04/24 11:46 07/04/24 11:46 07/04/24 11:46 07/04/24 11:46 Pain Score Most Recent Pain Score: Most Recent Pain Score Pain Level 0 07/04/24 07:24 Assessment Mental Status: Awake (Alert & Oriented to Patient Baseline) Airway and Respiratory Function: Patent airway with normal (patient baseline) respiratory exam Cardiovascular Function: Hemodynamically Stable Hydration Status: Adequately Hydrated Nausea & Vomiting: No Nausea or Vomiting Pain: Pain is tolerable per patient Peripheral Nerve Block: Patient did not receive a nerve block
[2024-07-04] MEDS: ceFAZolin 1 GM/50 ML BAG IVPB ×2 (14:20→22:13)
[2024-07-04] MEDS: Lactated Ringers 1,000 ML 100 ML IV ×2 (14:57→22:12)
[2024-07-04] MEDS: glipiZIDE 5 MG TAB PO (16:42)
[2024-07-04] MEDS: Docusate Sodium 100 MG CAP PO (19:49)
[2024-07-04] MEDS: Ketorolac 15 MG/ML VIAL IVP (19:49)
[2024-07-04] MEDS: Atorvastatin 20 MG TAB PO (19:49)
[2024-07-04] MEDS: Normal Saline Flush 10 ML SYR IV (19:50)
[2024-07-05 00:07] VITALS: BP 103/67; PULSE 97; RESP 17; TEMP 36.6; O2SAT 97
[2024-07-05] MEDS: ceFAZolin 1 GM/50 ML BAG IVPB (05:57)
[2024-07-05 06:04] LABS: Abs Immature Grans 0.03 10^3/uL (0.0-0.06); Absolute Basophil Count 0.01 10^3/uL (0.0-0.2); Absolute Lymphocyte Count 0.65 10^3/uL (1.2-3.4); Absolute Monocyte Count 0.97 10^3/uL (0.1-0.8); Basophils % 0.1 %; HCT 26.9 % (40.0-50.0); HGB 9.4 g/dL (13.5-17.5); Immature Grans % 0.3 %; Lymphocytes % 6.7 %; MCHC 34.9 % (32.0-36.0); MCV 83 fL (80-95); MPV 9.6 fL (8.0-11.0); Neutrophils % 82.9 %; Platelet Count 212 10^3/uL (130-400); RBC 3.24 10^6/uL (4.36-5.78); RDW 12.3 % (11.8-14.1); RDW-SD 37.6 fL; WBC 9.66 10^3/uL (4.4-10.8)
[2024-07-05 06:15] LABS: Anion Gap 8.8 mmol/L (3-11); BUN 33 mg/dL (7-18); CO2 24.2 mmol/L (21.0-32.0); CREATININE 1.5 mg/dL (0.70-1.30); Calcium 8.8 mg/dL (8.5-10.1); Chloride 104 mmol/L (98-107); Estimated GFR 48.25 (mL/min/1.73m2); Glucose 264 mg/dL (74-106); Potassium 4.7 mmol/L (3.5-5.1); Sodium 137 mmol/L (136-145)
--- NOTE | 2024-07-05 07:09 | W.PM.PROGNOT ---
Date of Service Date of service: 07/05/24 Time of Service: 07:09 Assessment and Plan Assessment and plan (1) Obstructive uropathy: Status: Acute Assessment and plan: We will discontinue his bladder irrigation and discontinue his IV fluids. We will plug his irrigation port and have him get up out of bed and ambulate this morning. If he continues to do well, I would expect we can discharge him later today. (2) Status post prostatectomy: Subjective Subjective Interval history since last seen: He complains of incisional pain if he moves or coughs. He is passing gas. He has no nausea or vomiting. Exam Narrative Exam Narrative: He looks well His vital signs are documented elsewhere His dressing is removed and his incision is clean with no surrounding erythema or ecchymosis A Deleon catheter is in place and the continuous bladder irrigation output is clear He is awake and alert His renal function and hemoglobin are stable postoperatively Objective Last Vital Signs Temp 36.6 C 07/05/24 00:07 Pulse 97 H 07/05/24 00:07 Resp 17 07/05/24 00:07 BP 103/67 07/05/24 00:07 Pulse Ox 97 07/05/24 00:07 Laboratory Results - last 24 hr 07/04/24 07/05/24 08:39 05:50 WBC 9.66 RBC 3.24 L Hgb 9.4 L Hct 26.9 L MCV 83 MCH 29.0 MCHC 34.9 RDW 12.3 Plt Count 212 MPV 9.6 Immature Gran % 0.3 Neutrophils % 82.9 Lymphocytes % 6.7 Monocytes % 10.0 Eosinophils % 0.0 Basophils % 0.1 Nucleated RBC % 0.0 Absolute Neutrophils 8.00 H Absolute Lymphocytes 0.65 L Absolute Monocytes 0.97 H Absolute Eosinophils 0.00 Absolute Basophils 0.01 Sodium 137 Potassium 4.7 Chloride 104 Carbon Dioxide 24.2 Anion Gap 8.8 BUN 33 H Creatinine 1.5 H Est GFR (CKD-EPI 2020) 48.25 Glucose 264 H Calcium 8.8 ABO/Rh A Positive Antibody Screen NEGATIVE Time Spent with Patient Time Spent with Patient: <25 minutes Time was spent: preparing to see the patient(eg.review tests), obtaining and/or reviewing separately otained hiistory and counseling the patient
[2024-07-05 07:38] VITALS: BP 114/63; PULSE 70; RESP 18; TEMP 37.5; O2SAT 98
[2024-07-05] MEDS: Acetaminophen 325 MG TAB 650 MG PO (07:58)
[2024-07-05] MEDS: glipiZIDE 5 MG TAB PO (07:58)
[2024-07-05] MEDS: hydroCHLOROthiazide 12.5 MG TAB PO (07:58)
[2024-07-05] MEDS: Lisinopril 20 MG TAB PO (07:59)
[2024-07-05] MEDS: Omeprazole 20 MG CAPCR PO (07:59)
[2024-07-05] MEDS: Docusate Sodium 100 MG CAP PO (07:59)
[2024-07-05] MEDS: Normal Saline Flush 10 ML SYR IVP (08:00)
--- NOTE | 2024-07-05 11:29 | DSE_ITS ---
Date of service: 07/05/24 Time of Service: 11:29 DS: Diagnosis Discharge Diagnosis (1) Obstructive uropathy: Status: Acute (2) Status post prostatectomy: Discharge Plan Disposition Patient Disposition: Home Condition: Improving Discharge Details Reason For Visit: Obstructive Uropathy Admit Date/Time: 07/04/24 07:11 Admit Provider: Rahul Sewell Attending Provider: Rahul Sewell [facility]: The patient was admitted and taken to the operating room on 07/04/2024. He underwent a simple retropubic prostatectomy. Following the surgery, he was transferred to the medical surgical unit. An indwelling catheter had been placed intraoperatively and continuous bladder irrigation was maintained for 24 hours. By the morning of postoperative day #1, the irrigant remained clear so we discontinued the CBI. His lab work on postoperative day #1 was stable. He was able to tolerate oral nutrition and medications. He is ready for discharge to home on postoperative day #1. Home Meds and New Rx's Prescriptions: New tramadol 50 mg tablet 50 mg PO Q6H PRN (Reason: pain) Qty: 15 0RF No Action nystatin 100,000 unit/gram ointment 1 applic topical BID Qty: 30 0RF Rx Instructions: Apply to the tip of the penis twice daily for 2-3 weeks. atorvastatin 20 mg tablet 20 mg PO QPM Qty: 90 3RF lisinopril-hydrochlorothiazide 20-12.5 mg tablet 1 tab PO DAILY Qty: 90 3RF glipizide 5 mg tablet 5 mg PO BID Qty: 180 3RF omeprazole 20 mg capsule,delayed release(DR/EC) 20 mg PO DAILY Qty: 90 3RF (DME) blood-glucose meter Misc See Rx Instructions .MEDSUPPLY Qty: 1 0RF Rx Instructions: As directed to check daily blood glucose. No insulin. Dispense covered brand. Dx: E11.9 to maintain HbA1c less than 7%. (DME) Blood Glucose Test Strip See Rx Instructions .MEDSUPPLY Qty: 100 3RF Rx Instructions: As directed to check daily blood glucose. No insulin. Dispense covered brand. Dx: E11.9 to maintain HbA1c less than 7%. (DME) lancets Misc See Rx Instructions .MEDSUPPLY Qty: 100 3RF Rx Instructions: As directed to check daily blood glucose. No insulin. Dispense covered brand. Dx: E11.9 to maintain HbA1c less than 7%. lidocaine HCl 2 % jelly in applicator 1 applic topical BID-QID PRN (Reason: pain) Qty: 250 2RF Rx Instructions: apply to urethral meatus as needed Discharge Instructions Additional Instructions: Your Deleon catheter will remain in place until early next week. There is a catheter plug to the irrigation port. The drainage port is hooked to a leg bag Please do not lift anything over 10 pounds until you have your follow-up visit You may shower and get the incision wet. You may take extra strength Tylenol for pain. I am sending in a prescription for tramadol that can be used along with the Tylenol if the pain is not well- controlled Activity:: No lifting over 10 pounds Equipment/Supplies:: Deleon catheter to leg bag Diet:: As Tolerated Discharge Orders Discharge Orders: Discharge Order (Routine); Ordered 07/05/24 Ordered By: Rahul Sewell DS: Summary Time Spent with Patient providing and/or coordinating discharge services: Less than 30 minutes Status at Discharge Functional status at discharge: independent ambulation Overall status at discharge: patient is progressing back to baseline Mental Status: mental status grossly normal Speech and Movement: speech and movement normal Mood: congruent mood Affect: normal affect Quality:SDOH Health Related Social Needs: No Data to Display Exam Narrative Exam Narrative: On the morning of discharge, he looks well. He does not appear septic or toxic His vital signs are documented elsewhere His chest wall motion is normal. He is not short of breath at rest. His abdomen is soft with no peritoneal signs. His surgical incision is clean and dry His catheter is draining clear urine He is awake and alert Psych Mental Status: mental status grossly normal Speech and Movement: speech and movement normal Mood: congruent mood Affect: normal affect DS: Data Vitals/I&O Vitals and I&O: Vital Signs Temperature 37.5 C 07/05/24 07:38 Temperature Source Temporal Artery Scan 07/05/24 07:38 Pulse 70 07/05/24 07:38 Pulse Rhythm Regular 07/04/24 13:16 Pulse 97 H 07/04/24 12:35 Respiratory Rate 18 07/05/24 07:38 Respiratory Effort Normal, Non-Labored 07/04/24 13:16 Respiratory Depth Normal 07/04/24 13:16 Respiratory Pattern Normal 07/04/24 13:16 Blood Pressure 114/63 07/05/24 07:38 Blood Pressure Mean 81 07/04/24 12:31 Pulse Oximetry 98 07/05/24 07:38 Respiratory End-tidal CO2 30 07/04/24 12:35 Oxygen Delivery Method Room Air 07/05/24 07:38 Oxygen Flow Rate 0 07/05/24 07:38 Pain Level 5 07/05/24 07:38 Comment pain in the lower stomach area 07/05/24 07:38 Comment Medicated for hypotension by Renetta Cabral. 07/04/24 11:17 Intake & Output 07/04/24 07/04/24 07/05/24 11:59 23:59 11:59 Intake Total 650 / 1875 1225 / 1875 1000 / 1000 Output Total 1200 / 1200 Balance -550 / 675 1225 / 675 1000 / 1000 Weight 71.3 kg 71.3 kg Intake: IV 650 / 1875 1225 / 1875 1000 / 1000 Output: Urine 1000 / 1000 Estimated Blood Loss 200 / 200 Other: Urine Color Pale Urine Appearance Clear Clear Comment continuous bladder irrigation processing Emesis Description None None Data Completed and Pending Labs on day of discharge: Labs from last 24 hours 07/05/24 05:50 WBC 9.66 RBC 3.24 L Hgb 9.4 L Hct 26.9 L MCV 83 MCH 29.0 MCHC 34.9 RDW 12.3 Plt Count 212 MPV 9.6 Immature Gran % 0.3 Neutrophils % 82.9 Lymphocytes % 6.7 Monocytes % 10.0 Eosinophils % 0.0 Basophils % 0.1 Nucleated RBC % 0.0 Absolute Neutrophils 8.00 H Absolute Lymphocytes 0.65 L Absolute Monocytes 0.97 H Absolute Eosinophils 0.00 Absolute Basophils 0.01 Sodium 137 Potassium 4.7 Chloride 104 Carbon Dioxide 24.2 Anion Gap 8.8 BUN 33 H Creatinine 1.5 H Est GFR (CKD-EPI 2020) 48.25 Glucose 264 H Calcium 8.8 PFSH All Active Problems Obstructive uropathy (Acute) Fatigue (Acute) [place] infection (Acute) Right hip pain (Acute) Hyperlipidemia (Acute) Diabetes mellitus (Chronic) He wants to stick with the glipizide for now. Will be glad to change him when he is ready. The diarrhea is the issue. He did not want any treatment for his perianal irritation as it is minimal right now. His another A1c in a few months. Also send him to [facility] for an evaluation. He has an A1c scheduled for month and a half from now and hopefully he will remember to go. 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 LARA Essential hypertension (Chronic 08/24/13) Tubular adenoma (Acute 11/23/15) Medical History Family history of diabetes mellitus (02/18/16) Mother/Sister Abnormal glucose Congenital hearing loss Essential hypertension Surgical History (Updated 07/05/24 @ 07:14 by Rahul Sewell MD) Status post prostatectomy simple retropubic prostatectomy 07/04/2024 Family History Mother , 62 Diabetes Sister No problems noted. Social History (Updated 05/26/24 @ 16:10 by Briseida Tong) Smoking/Tobacco Use Status: Never Second Hand Exposure: No Smoking risk assessment performed?: Yes Alcohol Intake: current Alcohol Intake frequency: holidays/special occasions only Alcohol type: beer, wine and hard liquor Drug use: Never Substance use type: does not use Counseling given: No Counseling provided: none Caregiver/Support person: No Household members: none Housing: house Communication Needs: Hard of Hearing Do you need help understanding health information?: Rarely Pets and animals: No Sexually active: No Do you think of yourself as: straight/heterosexual Current gender identity: male What is your relationship status?: never How often do you talk on the phone with friends or family?: once per week How often do you get together with friends or relatives?: twice per week How often do you attend confucianism or alevism services?: decline to answer Do you belong to any clubs or organized social groups?: yes Panel score (0-1 are the most socially isolated patients): 2 What type of physical activity do you participate in: walking Duration: 30-45 minutes/day Frequency: 1-2 times per week Yahaira/Rastafarian: None Seatbelt use: always Helmet use: No 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
--- NOTE | 2024-07-05 11:38 | DSE_ITS ---
Date of service: 07/05/24 Time of Service: 11:39 DS: Diagnosis Discharge Diagnosis (1) Obstructive uropathy: Status: Acute (2) Status post prostatectomy: Discharge Plan Disposition Patient Disposition: Home Condition: Improving Discharge Details Reason For Visit: Obstructive Uropathy Admit Date/Time: 07/04/24 07:11 Admit Provider: Rahul Sewell Attending Provider: Rahul Sewell [facility] Course: The patient was admitted and taken to the operating room on 07/04/2024. He underwent a simple retropubic prostatectomy. Following the surgery, he was transferred to the medical surgical unit. An indwelling catheter had been placed intraoperatively and continuous bladder irrigation was maintained for 24 hours. By the morning of postoperative day #1, the irrigant remained clear so we discontinued the CBI. His lab work on postoperative day #1 was stable. He was able to tolerate oral nutrition and medications. He is ready for discharge to home on postoperative day #1. Home Meds and New Rx's Prescriptions: New tramadol 50 mg tablet 50 mg PO Q6H PRN (Reason: pain) Qty: 15 0RF No Action nystatin 100,000 unit/gram ointment 1 applic topical BID Qty: 30 0RF Rx Instructions: Apply to the tip of the penis twice daily for 2-3 weeks. atorvastatin 20 mg tablet 20 mg PO QPM Qty: 90 3RF lisinopril-hydrochlorothiazide 20-12.5 mg tablet 1 tab PO DAILY Qty: 90 3RF glipizide 5 mg tablet 5 mg PO BID Qty: 180 3RF omeprazole 20 mg capsule,delayed release(DR/EC) 20 mg PO DAILY Qty: 90 3RF (DME) blood-glucose meter Misc See Rx Instructions .MEDSUPPLY Qty: 1 0RF Rx Instructions: As directed to check daily blood glucose. No insulin. Dispense covered brand. Dx: E11.9 to maintain HbA1c less than 7%. (DME) Blood Glucose Test Strip See Rx Instructions .MEDSUPPLY Qty: 100 3RF Rx Instructions: As directed to check daily blood glucose. No insulin. Dispense covered brand. Dx: E11.9 to maintain HbA1c less than 7%. (DME) lancets Misc See Rx Instructions .MEDSUPPLY Qty: 100 3RF Rx Instructions: As directed to check daily blood glucose. No insulin. Dispense covered brand. Dx: E11.9 to maintain HbA1c less than 7%. lidocaine HCl 2 % jelly in applicator 1 applic topical BID-QID PRN (Reason: pain) Qty: 250 2RF Rx Instructions: apply to urethral meatus as needed Discharge Instructions Additional Instructions: Your Deleon catheter will remain in place until early next week. There is a catheter plug to the irrigation port. The drainage port is hooked to a leg bag Please do not lift anything over 10 pounds until you have your follow-up visit You may shower and get the incision wet. You may take extra strength Tylenol for pain. I am sending in a prescription for tramadol that can be used along with the Tylenol if the pain is not well- controlled Referrals: Rahul Sewell MD [ [facility]YSICIAN] - (The patient will require to follow-up appointments. The first should be early next week to have his catheter removed. His second appointment should be in about 2 weeks to review his surgical pathology.) Activity:: No lifting over 10 pounds Equipment/Supplies:: Deleon catheter to leg bag Diet:: As Tolerated Discharge Orders Discharge Orders: Discharge Order (Routine); Ordered 07/05/24 Ordered By: Rahul Sewell DS: Summary Time Spent with Patient providing and/or coordinating discharge services: Less than 30 minutes Status at Discharge Functional status at discharge: independent ambulation Overall status at discharge: patient is progressing back to baseline Mental Status: mental status grossly normal Speech and Movement: speech and movement normal Mood: congruent mood Affect: normal affect Quality:SDOH Health Related Social Needs: No Data to Display Exam Psych Mental Status: mental status grossly normal Speech and Movement: speech and movement normal Mood: congruent mood Affect: normal affect DS: Data Vitals/I&O Vitals and I&O: Vital Signs Temperature 37.5 C 07/05/24 07:38 Temperature Source Temporal Artery Scan 07/05/24 07:38 Pulse 70 07/05/24 07:38 Pulse Rhythm Regular 07/04/24 13:16 Pulse 97 H 07/04/24 12:35 Respiratory Rate 18 07/05/24 07:38 Respiratory Effort Normal, Non-Labored 07/04/24 13:16 Respiratory Depth Normal 07/04/24 13:16 Respiratory Pattern Normal 07/04/24 13:16 Blood Pressure 114/63 07/05/24 07:38 Blood Pressure Mean 81 07/04/24 12:31 Pulse Oximetry 98 07/05/24 07:38 Respiratory End-tidal CO2 30 07/04/24 12:35 Oxygen Delivery Method Room Air 07/05/24 07:38 Oxygen Flow Rate 0 07/05/24 07:38 Pain Level 5 07/05/24 07:38 Comment pain in the lower stomach area 07/05/24 07:38 Comment Medicated for hypotension by Renetta Cabral. 07/04/24 11:17 Intake & Output 07/04/24 07/04/24 07/05/24 11:59 23:59 11:59 Intake Total 650 / 1875 1225 / 1875 1000 / 1000 Output Total 1200 / 1200 Balance -550 / 675 1225 / 675 1000 / 1000 Weight 71.3 kg 71.3 kg Intake: IV 650 / 1875 1225 / 1875 1000 / 1000 Output: Urine 1000 / 1000 Estimated Blood Loss 200 / 200 Other: Urine Color Pale Urine Appearance Clear Clear Comment continuous bladder irrigation processing Emesis Description None None Data Completed and Pending Labs on day of discharge: Labs from last 24 hours 07/05/24 05:50 WBC 9.66 RBC 3.24 L Hgb 9.4 L Hct 26.9 L MCV 83 MCH 29.0 MCHC 34.9 RDW 12.3 Plt Count 212 MPV 9.6 Immature Gran % 0.3 Neutrophils % 82.9 Lymphocytes % 6.7 Monocytes % 10.0 Eosinophils % 0.0 Basophils % 0.1 Nucleated RBC % 0.0 Absolute Neutrophils 8.00 H Absolute Lymphocytes 0.65 L Absolute Monocytes 0.97 H Absolute Eosinophils 0.00 Absolute Basophils 0.01 Sodium 137 Potassium 4.7 Chloride 104 Carbon Dioxide 24.2 Anion Gap 8.8 BUN 33 H Creatinine 1.5 H Est GFR (CKD-EPI 2020) 48.25 Glucose 264 H Calcium 8.8 PFSH All Active Problems Obstructive uropathy (Acute) Fatigue (Acute) [place] infection (Acute) Right hip pain (Acute) Hyperlipidemia (Acute) Diabetes mellitus (Chronic) He wants to stick with the glipizide for now. Will be glad to change him when he is ready. The diarrhea is the issue. He did not want any treatment for his perianal irritation as it is minimal right now. His another A1c in a few months. Also send him to [facility] for an evaluation. He has an A1c scheduled for month and a half from now and hopefully he will remember to go. 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 LARA Essential hypertension (Chronic 08/24/13) Tubular adenoma (Acute 11/23/15) Medical History Family history of diabetes mellitus (02/18/16) Mother/Sister Abnormal glucose Congenital hearing loss Essential hypertension Surgical History (Updated 07/05/24 @ 07:14 by Rahul Sewell MD) Status post prostatectomy simple retropubic prostatectomy 07/04/2024 Family History Mother , 62 Diabetes Sister No problems noted. Social History (Updated 05/26/24 @ 16:10 by Briseida Tong) Smoking/Tobacco Use Status: Never Second Hand Exposure: No Smoking risk assessment performed?: Yes Alcohol Intake: current Alcohol Intake frequency: holidays/special occasions only Alcohol type: beer, wine and hard liquor Drug use: Never Substance use type: does not use Counseling given: No Counseling provided: none Caregiver/Support person: No Household members: none Housing: house Communication Needs: Hard of Hearing Do you need help understanding health information?: Rarely Pets and animals: No Sexually active: No Do you think of yourself as: straight/heterosexual Current gender identity: male What is your relationship status?: never How often do you talk on the phone with friends or family?: once per week How often do you get together with friends or relatives?: twice per week How often do you attend rastafarian or mandaen services?: decline to answer Do you belong to any clubs or organized social groups?: yes Panel score (0-1 are the most socially isolated patients): 2 What type of physical activity do you participate in: walking Duration: 30-45 minutes/day Frequency: 1-2 times per week Yahaira/Islam: None Seatbelt use: always Helmet use: No Drive intox or ride w/intox driver/guide: No Additional Social history: [facility]AP Time Spent with Patient Time Spent with Patient: <45 minutes Time was spent: counseling the patient
[2024-07-05 12:48] VITALS: BP 75/51; BP 83/48; BP 87/62; PULSE 100; PULSE 109; PULSE 83
== END 2024-07-05 14:08 | disposition home or self-care (01) ==
LOC: PDS 10:47 → MS 16:18 → PDS 16:30 → MS 18:05
PROVIDERS: Admitting Provider Urology; PCP Nurse Practitioner Family; Visit Provider Urology
PROC: (CPT 55831; principal; 2024-07-04 08:45)
DX: D29.1 Benign neoplasm of prostate (principal); N13.8 Other obstructive and reflux uropathy; E11.9 Type 2 diabetes mellitus without complications; K21.9 Gastro-esophageal reflux disease without esophagitis; E78.5 Hyperlipidemia, unspecified; I10 Essential (primary) hypertension; Z79.84 Long term (current) use of oral hypoglycemic drugs
CPT/HCPCS: 55831; 36415; 80048; 86850; 86900; 86901; 96365; 96366; 96375; 85025; 88307; 88309; G0378; J0131; J0690; J1100; J1171; J1805; J1885; J2371; J2405; J2704

== ENCOUNTER → 2024-07-11 07:50 | Outpatient (BNVA) | payer MEDICARE, SELFPAY | PROVIDERS: PCP Nurse Practitioner Family; Referring Provider Nurse Practitioner Family; Visit Provider Nurse Practitioner Gerontology | DX: Z48.816 Encounter for surgical aftercare following surgery on the genitourinary system (principal); N13.9 Obstructive and reflux uropathy, unspecified ==

== ENCOUNTER → 2024-07-14 08:00 | Outpatient (BNVA) | payer MEDICARE, SELFPAY | PROVIDERS: PCP Nurse Practitioner Family; Referring Provider Nurse Practitioner Family; Visit Provider Urology | DX: N13.9 Obstructive and reflux uropathy, unspecified (principal) ==

== ENCOUNTER → 2024-07-18 07:48 | Outpatient (BNVA) | payer MEDICARE, SELFPAY | PROVIDERS: PCP Nurse Practitioner Family; Referring Provider Nurse Practitioner Family; Visit Provider Nurse Practitioner Gerontology | DX: K59.00 Constipation, unspecified (principal); N13.9 Obstructive and reflux uropathy, unspecified | CPT/HCPCS: 51798; 99213 ==

== ENCOUNTER → 2024-08-16 08:54 | Outpatient (BNVA) | payer MEDICARE, SELFPAY | PROVIDERS: PCP Nurse Practitioner Family; Referring Provider Nurse Practitioner Family; Visit Provider Nurse Practitioner Gerontology | DX: Z48.816 Encounter for surgical aftercare following surgery on the genitourinary system (principal); K59.00 Constipation, unspecified; I10 Essential (primary) hypertension; N13.9 Obstructive and reflux uropathy, unspecified | CPT/HCPCS: 51798 ==

== ENCOUNTER 2024-12-14 08:19 | Outpatient (CLI) | payer MEDICARE, SELFPAY ==
[2024-12-14 09:28] LABS: ALT 26 U/L (16-63); AST 11 U/L (15-37); Albumin 4.1 g/dL (3.4-5.0); Alkaline Phosphatase 87 U/L (46-116); Anion Gap 10.1 mmol/L (3-11); BUN 26 mg/dL (7-18); Bilirubin, Total 0.8 mg/dL (0.2-1.0); CO2 28.9 mmol/L (21.0-32.0); CREATININE 1.1 mg/dL (0.70-1.30); Calcium 9.5 mg/dL (8.5-10.1); Chloride 104 mmol/L (98-107); Estimated GFR 69.57 (mL/min/1.73m2); Glucose 294 mg/dL (74-106); Potassium 4.3 mmol/L (3.5-5.1); Sodium 143 mmol/L (136-145); Total Protein 7.3 g/dL (6.4-8.2); Vitamin D 25 Total 25 ng/mL (30-100)
== END 2024-12-14 08:20 | disposition home or self-care (01) ==
LOC: LBO 08:19
PROVIDERS: PCP Nurse Practitioner Family; Visit Provider Nurse Practitioner Family
DX: E55.9 Vitamin D deficiency, unspecified (principal); E11.9 Type 2 diabetes mellitus without complications; I10 Essential (primary) hypertension
CPT/HCPCS: 36415; 80053; 82306

== ENCOUNTER → 2025-02-14 09:40 | Outpatient (BNVA) | payer MEDICARE, SELFPAY | PROVIDERS: PCP Nurse Practitioner Family; Visit Provider Nurse Practitioner Gerontology | DX: N13.9 Obstructive and reflux uropathy, unspecified (principal); I10 Essential (primary) hypertension; R39.9 Unspecified symptoms and signs involving the genitourinary system | CPT/HCPCS: 99213; 51798 ==

== ENCOUNTER → 2025-08-16 09:48 | Outpatient (BNVA) | payer MEDICARE, SELFPAY | PROVIDERS: PCP Nurse Practitioner Family; Referring Provider Nurse Practitioner Family; Visit Provider Nurse Practitioner Gerontology | DX: N13.9 Obstructive and reflux uropathy, unspecified (principal); I10 Essential (primary) hypertension; R32 Unspecified urinary incontinence; R39.9 Unspecified symptoms and signs involving the genitourinary system | CPT/HCPCS: 99213; 51798 ==